=== PATIENT | female | born 1950 | race Caucasian/White ===

== ENCOUNTER 2019-01-04 08:04 | Inpatient (IN) | payer OTHER ==
[~2019-01-04] VITALS: Ht 162.6 cm; Wt 71.4 kg
[2019-01-04 08:05] VITALS: BP 99/40
[2019-01-04 08:45] LABS: ABSOLUTE EOSINOPHILS 0.2 thou/uL (0.0-0.7); ABSOLUTE LYMPHOCYTES 1.6 thou/uL (0.8-5.3); ABSOLUTE MONOCYTES 0.5 thou/uL (0.0-1.2); ABSOLUTE NEUTROPHILS 5.2 thou/uL (1.6-8.1); BASOPHILS 0.4 %; EOSINOPHILS 3.2 %; HEMATOCRIT 35.7 % (37.0-47.0); LYMPHOCYTES 21.1 %; MCH 29.2 pg (26.0-34.0); MCHC 33.5 g/dL (28.0-37.0); MCV 87.1 fL (80.0-100.0); MONOCYTES 6.4 %; MPV 8.3 fl. (7.2-11.1); NUCLEATED RBCS 0 /100WBC; PLATELET COUNT* 249 thou/uL (150-400); POLYS 68.9 %; RDW-CV 14.4 % (10.5-14.5); WBC 7.6 thou/uL (4.0-11.0)
[2019-01-04 08:49] LABS: URINE BILIRUBIN NEGATIVE (Negative); URINE BLOOD TRACE (Negative); URINE CLARITY CLEAR; URINE COLOR YELLOW; URINE GLUCOSE-RANDOM NEGATIVE (Negative); URINE KETONES NEGATIVE (Negative); URINE LEUKOCYTES-REFLEX NEGATIVE (Negative); URINE NITRITE-REFLEX NEGATIVE (Negative); URINE PROTEIN 2+ (Negative); URINE UROBILINOGEN 0.2 E.U./dl (0.2-1.0)
[2019-01-04 08:50] LABS: ANION GAP 9 mmol/L (7-16); BUN 38 mg/dL (7-18); CALCIUM 8.5 mg/dL (8.5-10.1); CHLORIDE 105 mmol/L (98-107); CO2 23 mmol/L (21-32); CREATININE 1.5 mg/dL (0.6-1.3); GLUCOSE 287 mg/dL (70-99); POTASSIUM 4.6 mmol/L (3.5-5.1); SODIUM 137 mmol/L (136-145)
[2019-01-04 08:59] LABS: ALBUMIN 2.7 g/dL (3.4-5.0); ALKALINE PHOSPHATASE 95 U/L (46-116); SGOT 10 U/L (15-37); SGPT 23 U/L (30-65); TOTAL BILIRUBIN 0.2 mg/dL (<0.1-1.0); TOTAL PROTEIN 6.1 g/dL (6.4-8.2); TROPONIN-I LEVEL <0.06 ng/mL (<0.06)
[2019-01-04 09:11] LABS: AMORPHOUS URATES Few /LPF (None Seen); CASTS None Seen /LPF (None Seen); CRYSTALS None Seen /LPF (None Seen); SQUAMOUS 0-3 Few /LPF (0-3); URINE RBC None Seen /HPF (0-2); URINE WBC-REFLEX 0-5 Rare /HPF (0-5)
[2019-01-04] MEDS ORDERED: GLUCOPHAGE1000 MG PO (09:53)
[2019-01-04] MEDS ORDERED: IRON325 M1 PO (09:54)
[2019-01-04] MEDS ORDERED: PLAVIX 75 MG TA75 M1 PO (09:55)
[2019-01-04] MEDS ORDERED: PAXIL40 MG PO (09:55)
[2019-01-04] MEDS ORDERED: IMDUR 60 MG TAB60 M1 PO (09:56)
[2019-01-04] MEDS ORDERED: XARELTO20 MG PO (09:56)
[2019-01-04] MEDS ORDERED: QUINAPRIL 20 MG20 MG PO (09:56)
[2019-01-04] MEDS ORDERED: NITROGLYCERIN0.4 MG SUBLING (09:56)
[2019-01-04] MEDS ORDERED: PROTONIX40 M2 PO (09:57)
[2019-01-04 12:45] VITALS: BP 109/43
--- NOTE | 2019-01-04 14:33 | EKG ---
[place] [address] ELECTROCARDIOGRAM REPORT Name: PRITI CRISOSTOMO Room: [address] ADM IN [facility]#: [id number] Admission: 01/04/19 Attend Phys: Gilberto Burt MD Discharge: Date of : 52 Report #: [id number] THIS REPORT FOR: //name// [facility] ED Test Date: 2019-01-04 Test Time: 08:05:19 Pat Name: PRITI CRISOSTOMO Department: Room: [facility] Gender: F Creative Project Manager: EV : 1950 Requested By: Dea Suero Order Number: [id number] MD: Zurdo Weston Measurements Intervals Davey Rate: 54 P: 52 NJ: 157 QRS: -40 QRSD: 136 T: -31 QT: 480 QTc: 455 Interpretive Statements Sinus bradycardia RBBB and LAFB No previous ECG available for comparison Electronically Signed On 01-04-2019 14:33:31 CDT by Zurdo Weston [email or web address] <ELECTRONICALLY SIGNED> By: Zurdo Weston MD, [facility] 01/04/19 1433 4 4 Zurdo Weston MD, FACC /EPI
[2019-01-04 16:00] VITALS: BP 112/37
--- NOTE | 2019-01-04 18:51 | NUR ---
RECIEVED PT FROM ER AGT 1628, PT IS A BKA R LEG. SHE HAD AN ECHO GRAM WAITING ON RESULTS. BEDREST WITH BEDSIDE COMMODE. PLEASANT ET COMPLIANT THIS SHIFT WITH NURSING CARE. MOSTLY RESTING THIS SHIFT, DID HAVE A MED BM THIS AFTERNOON. SR BBB ON THE CARD MONITOR. BP IS CURRENTLY READING LOW DIASTOLE NUMBERS. PT ATE LUNCH BUT NOT MUCH DINNER. UP WITH ASSIST. HOURLY ROUNDS, ADMISSION ASSESSMENT COMPLETE ET CHARTED.
[2019-01-04 20:00] VITALS: BP 121/60
[2019-01-05] VITALS: BP 141/55
[2019-01-05 03:08] LABS: GLYCOHEMOGLOBIN (HGB A1C) 7.6 % (4.8-5.6)
[2019-01-05 04:00] VITALS: BP 172/53
[2019-01-05 04:36] LABS: ABSOLUTE EOSINOPHILS 0.2 thou/uL (0.0-0.7); ABSOLUTE LYMPHOCYTES 2.5 thou/uL (0.8-5.3); ABSOLUTE MONOCYTES 0.6 thou/uL (0.0-1.2); ABSOLUTE NEUTROPHILS 5.6 thou/uL (1.6-8.1); BASOPHILS 0.3 %; HEMATOCRIT 33.8 % (37.0-47.0); HEMOGLOBIN 11.4 gm/dL (12.0-15.0); LYMPHOCYTES 27.9 %; MCH 29.1 pg (26.0-34.0); MCHC 33.6 g/dL (28.0-37.0); MCV 86.7 fL (80.0-100.0); MONOCYTES 6.8 %; MPV 8.3 fl. (7.2-11.1); NUCLEATED RBCS 0 /100WBC; PLATELET COUNT* 243 thou/uL (150-400); RDW-CV 14.7 % (10.5-14.5); WBC 8.8 thou/uL (4.0-11.0)
[2019-01-05 04:57] LABS: CHOLESTEROL 268 mg/dL (<200); HDL CHOLESTEROL 42 mg/dL (>40); LDL CHOLESTEROL 185 mg/dL (<100); SERUM ASSESSMENT Clear; TC:HDL 6.4 Ratio (Not establshd); TRIGLYCERIDE 207 mg/dL (<150); VLDL 41 mg/dL (<40)
[2019-01-05 05:22] LABS: CALCIUM 8.8 mg/dL (8.5-10.1); CREATININE 1.2 mg/dL (0.6-1.3); POTASSIUM 4.8 mmol/L (3.5-5.1)
--- NOTE | 2019-01-05 05:29 | NUR ---
ASSUMED PATIENT CARE AT 1900. PATIENT ALERT AND ORIENTED TIMES FOUR. HAS BEEN TRANSFERRING SELF TO BSC. NO COMPLAINTS OF PAIN OR DISCOMFORT NOTED. SENIOR PLANNER AND HOURLY ROUNDING COMLETED CHARTED.
[2019-01-05 08:00] VITALS: BP 160/65
[2019-01-05 12:00] VITALS: BP 141/51
--- NOTE | 2019-01-05 13:59 | NUR ---
Pt having testing done in room, will f/u later
--- NOTE | 2019-01-05 14:42 | 2DMMODE ---
[place] [address] 2 D/M-MODE ECHOCARDIOGRAM Name: PRITI CRISOSTOMO Room: [address] IN [facility]#: [id number] Admission: 01/04/19 Attend Phys: Gilberto Burt, Discharge: Date of : 52 Date of Service: 01/05/19 1442 Report #: [id number] THIS REPORT FOR: //name// APPROVED REPORT Study performed: 01/05/2019 09:32:58 EXAM: Comprehensive 2D, Doppler, and color-flow Echocardiogram Patient Location: In-Patient Room #: [facility] Status: routine BSA: 1.76 HR: 71 bpm BP: 160/65 mmHg Rhythm: NSR Other Information Study Quality: Good Indications CVA/TIA Echo Enhancing Agent Indication: Rule out Shunt Agent(s) / Amount(s) Used: Agitated Saline 10 cc 2D Dimensions IVSd: 15.13 (7-11mm) LVOT Diam: 19.71 (18-24mm) LVDd: 46.70 mm PWd: 11.68 (7-11mm) Ascending Ao: 35.36 (22-36mm) LVDs: 29.35 (25-40mm) Aortic Root: 33.13 mm Volumes Left Atrial Volume (Systole) LA ESV Index: 43.50 mL/m2 Aortic Valve AoV Peak Jet.: 1.53 m/s AO Peak Gr.: 9.41 mmHg LVOT Max P.00 mmHg AO Mean Gr.: 5.11 mmHg LVOT Mean P.99 mmHg LVOT Max V: 1.00 m/s AO V2 VTI: 34.18 cm LVOT Mean V: 0.65 m/s GLYNN (VTI): 2.07 cm2 LVOT V1 VTI: 23.24 [place] [address] 2 D/M-MODE ECHOCARDIOGRAM Name: PRITI CRISOSTOMO Room: [address] IN [facility].#: [id number] Admission: 01/04/19 Attend Phys: Gilberto Burt, Discharge: Date of : 52 Date of Service: 01/05/19 1442 Report #: [id number] Mitral Valve E/A Ratio: 1.07 MV Decel. Time: 205.12 ms MV E Max Jet.: 0.90 m/s MV PHT: 59.49 ms MVA (PHT): 3.70 cm2 TDI E/Lateral E': 9.00 E/Medial E': 15.00 Medial E' Jet.: 0.06 m/s Lateral E' Jet.: 0.10 m/s Pulmonary Valve PV Peak Jet.: 1.01 m/s PV Peak Gr.: 4.04 mmHg Left Ventricle The left ventricle is normal size. There is normal LV segmental wall motion. Mild concentric left ventricular hypertrophy. Left ventricular systolic function is normal. LVEF is 65-70%. Transmitral Doppler flow pattern suggests impaired LV relaxation. Right Ventricle The right ventricle is normal size. The right ventricular systolic function is normal. Atria Left atrium is mildly dilated. Interatrial septum is intact without evidence of ASD or PFO. The right atrium size is normal. Aortic Valve The Aortic valve is sclerotic. No aortic regurgitation is present. Mild aortic stenosis. Mitral Valve The mitral valve is normal in structure. Trace mitral regurgitation. No evidence of mitral valve stenosis. Tricuspid Valve The tricuspid valve is normal in structure. There is no tricuspid valve regurgitation noted. Pulmonic Valve The pulmonary valve is normal in structure. There is no pulmonic valvular regurgitation[place] [address] 2 D/M-MODE ECHOCARDIOGRAM Name: PRITI CRISOSTOMO Room: [address]#: [id number] Admission: 01/04/19 Attend Phys: Gilberto Burt, Discharge: Date of : 52 Date of Service: 01/05/19 1442 Report #: [id number] The aortic root is normal in size. IVC is normal in size and collapses >50% with inspiration. Pericardium There is no pericardial effusion. <Conclusion> The left ventricle is normal size. Mild concentric left ventricular hypertrophy. Left ventricular systolic function is normal. LVEF is 65-70%. Transmitral Doppler flow pattern suggests impaired LV relaxation. Interatrial septum is intact without evidence of ASD or PFO. Left atrium is mildly dilated. The Aortic valve is sclerotic. Mild aortic stenosis. Trace mitral regurgitation. IVC is normal in size and collapses >50% with inspiration. <ELECTRONICALLY SIGNED> By: Mervin Mary MD, FACC 01/05/19 1442 144 144 Merivn Mary MD, FACC /INF
--- NOTE | 2019-01-05 15:35 | NUR ---
ASSUMED PT CARE AT 0800, AOX4, UP SBA, O2 SAT 90'S RA. TRACING SR, BBB ON TELE. PT DENIES PAIN. PT HAD EEG, FOR MRA/MRI. PT HAS VASCULAR CONSULT. PT FOR ACCU CHECK, PT IV ACCESS INTACT, FLUID RUNNING, PT LAST BM TODAY. VSS, AM ASSESSMENT CHARTED, MEDS GIVEN PER MAR. WILL CONTINUE TO MONITOR.
[2019-01-05 16:00] VITALS: BP 121/53
[2019-01-05 20:00] VITALS: BP 90/63
[2019-01-06] VITALS: BP 165/60
[2019-01-06 04:00] VITALS: BP 148/69
--- NOTE | 2019-01-06 05:53 | NUR ---
ASSUMED PATIENT CARE AT 1900. PATIENT ALERT AND ORIENTED TIMES FOUR. NO COMPLAINTS OF PAIN OR DISCOMFORT NOTED. STATES THAT SHE FEELS MUCH BETTER BUT, LETHARGIC. HOPING TO BE ABLE TO GO HOME TODAY. PAEDODONTIST AND HOURLY ROUNDING COMPLETED CHARTED
[2019-01-06 07:30] VITALS: BP 150/56
[2019-01-06 09:36] LABS: ABSOLUTE EOSINOPHILS 0.2 thou/uL (0.0-0.7); ABSOLUTE LYMPHOCYTES 1.6 thou/uL (0.8-5.3); ABSOLUTE MONOCYTES 0.6 thou/uL (0.0-1.2); ABSOLUTE NEUTROPHILS 3.6 thou/uL (1.6-8.1); BASOPHILS 0.6 %; HEMATOCRIT 33.8 % (37.0-47.0); HEMOGLOBIN 11.4 gm/dL (12.0-15.0); LYMPHOCYTES 26.9 %; MCHC 33.9 g/dL (28.0-37.0); MCV 85.8 fL (80.0-100.0); MONOCYTES 9.4 %; MPV 8.1 fl. (7.2-11.1); NUCLEATED RBCS 0 /100WBC; PLATELET COUNT* 243 thou/uL (150-400); POLYS 59.1 %; RBC 3.94 mil/uL (4.20-5.00); RDW-CV 14.4 % (10.5-14.5); WBC 6.1 thou/uL (4.0-11.0)
[2019-01-06 10:02] LABS: ALBUMIN 2.6 g/dL (3.4-5.0); CALCIUM 8.5 mg/dL (8.5-10.1); CREATININE 1.1 mg/dL (0.6-1.3); POTASSIUM 3.9 mmol/L (3.5-5.1); TOTAL BILIRUBIN 0.5 mg/dL (<0.1-1.0); TOTAL PROTEIN 5.9 g/dL (6.4-8.2)
[2019-01-06 12:00] VITALS: BP 172/68
--- NOTE | 2019-01-06 13:19 | NUR ---
PT. IS NOT USING HER PROTHESIS SINCE SHE SAYS IT DOESN'T FIT AND HAS BEEN HAVING DIFFICULTY GETTING TO HANGAR. SHE DOESN'T LIKE USING A WALKER AND HOPPING BECAUSE SHE HAS FELL BEFORE. PT. BORROWS HER SPOUSE'S W/C AROUND THE HOUSE BUT THEY ARE UNABLE TO GET THE W/C IN HER CAR. PT. APPEARS SHE MAY BENEFIT FROM A ULTRA LIGHTWEIGHT W/C THAT THE WHEELS POP OFF AND THE SEAT FOLDS FOR COMMUNITY MOBILITY.
--- NOTE | 2019-01-06 15:04 | NUR ---
Pt is A&O. Resides at home with her , dtr and gdtr. Independent with driving, dtr completes cooking and cleaning. Independent with ADLs. Pt uses a wc for mobility, able to complete her own transfers and propel. Pt is a right AKA and states that she has a prothesis, but states that it needs to be adjusted. No hx of HH or SNF. Pt wants HH, CM to arrange. Following.
[2019-01-06 16:00] VITALS: BP 137/52
--- NOTE | 2019-01-06 17:25 | NUR ---
ASSUMED PT CARE AT 0730, AOX4, UP SBA TO COMMODE. O2 SAT 90'S RA. TRACING SR ON TELE. PT DENIES PAIN. PT HAD CTA CHEST. PT FOR ACCU CHECK, IV ACCESS INTACT FLUIDS. LAST BM 12/06/18. VSS, AM ASSESSMENT CHARTED, MED GIVEN PER MAR, CALL LIGHT WITHIN REACH, WILL CONITINUE TO MONITOR.
[2019-01-06 20:48] VITALS: BP 208/84
[2019-01-07] VITALS (7 sets, daily range): BP systolic 148–179; BP diastolic 47–80
--- NOTE | 2019-01-07 06:57 | NUR ---
PT IS ABLE TO COMMUNICATE HER NEEDS TO STAFF EFFECTIVELY. SHE HAS DENIED THE NEED FOR PAIN MEDICATION UP TO THIS TIME. SHE HAS BEEN NPO SINCE MIDNIGHT FOR A DOBUTAMINE STRESS ECHO LATER TODAY. POSSIBLE DISCHARGE LATER TODAY PENDING CARDIOLOGY APPROVIAL.
--- NOTE | 2019-01-07 09:24 | NUR ---
Pt discharging to home today, faxed HH referral to [facility] per Pt's request.
--- NOTE | 2019-01-07 10:08 | NUR ---
assumed pt care report received from nurse pt is aox4, sr bbb on campus monitor. on ra. ns infusing at 50 cc per hour. accucheck ac/hs. mornign med given. pending stress echo test. pt is awaiting in room. pt uses the bedside commode independently. no complaint. will continue to monitor
[2019-01-07] MEDS ORDERED: LIPITOR40 MG PO (14:05)
--- NOTE | 2019-01-07 16:45 | CON ---
[address] [address] CONSULTATION Name: PRITI CRISOSTOMO Room: [address] IN [facility].#: [id number] Admission: 01/04/19 Attend Phys: Gilberto Burt MD Discharge: Date of : 52 Report #: [id number] THIS REPORT FOR: //name// CC: Gilberto Amaro DATE OF SERVICE: 01/06/2019 CARDIOLOGY CONSULTATION HISTORY OF PRESENT ILLNESS: The patient is a 68-year-old white female, who I was asked to see in the hospital today to assess her cardiac risk for surgery. The patient has an extensive and complicated past medical history. Unfortunately, most of her care has been at [facility]. She has a long history of diabetes, hypertension, and hyperlipidemia. She also smokes a pack of cigarettes a day. She has a history of PAD and has had stents placed in both legs. She was not a candidate for surgery. She eventually required right above the knee amputation about a year ago at [facility]. She does have prosthesis. She is not very active at this time. She also apparently had a previous left carotid stent. She has no history of coronary artery disease. Stated she had a previous pharmacologic nuclear stress test that was unremarkable. She has never had a heart catheterization. She presented to [facility]. She apparently had a syncopal spell at home. She complained of feeling weak on arrival. She denied any recent chest pain, shortness of breath, palpitations. She was found to have evidence of carotid stenosis. She may require carotid endarterectomy. Preop cardiology evaluation was requested. PAST MEDICAL HISTORY: Otherwise significant for hysterectomy and cholecystectomy. MEDICATIONS: On admission includes metformin, Paxil, Plavix, Imdur, Xarelto, quinapril, Protonix. ALLERGIES: She has no known drug allergies. FAMILY HISTORY: Positive for heart disease. SOCIAL HISTORY: She is . She and her live here in [place]. She smokes a pack of cigarettes a day. Denies alcohol abuse. REVIEW OF SYSTEMS: There has been no previous history of stroke. No history of asthma, liver disease, kidney disease, cancer, psychiatric illness, chronic skin condition. PHYSICAL EXAMINATION: [place] [address] CONSULTATION Name: PRITI CRISOSTOMO Room: [address]#: [id number] Admission: 01/04/19 Attend Phys: Gilberto Burt MD Discharge: Date of : 52 Report #: [id number] GENERAL: Revealed an elderly female lying in bed. She appeared in no acute distress. VITAL SIGNS: Blood pressure 150/60, pulse 70. She is afebrile. HEENT: She was anicteric. Conjunctivae are pink. Mucous membranes are moist. NECK: Veins are nondistended. Bilateral carotid bruits were heard. CHEST: Clear to auscultation. CARDIOVASCULAR: Regular rate and rhythm, no murmur. ABDOMEN: Soft. EXTREMITIES: Left lower extremity had no edema. Dorsalis pedis pulse cannot be palpated. SKIN: Cool and dry. NEUROLOGIC: Nonfocal. LABORATORY DATA: Her ECG on admission showed a sinus bradycardia, left anterior fascicular block and a right bundle branch block. Workup since her hospitalization included an echocardiogram done yesterday that showed left ventricular hypertrophy, ejection fraction 65%. No evidence of PFO by bubble study, left atrial enlargement, aortic sclerosis. There appeared to be mild stenosis of the aortic valve with a peak gradient across the valve of 10 mmHg. Workup since her admission, she had a portable chest x-ray that showed normal heart size, tortuous aorta, otherwise clear lung ramirez. CT scan of the head after admission without contrast showed no acute abnormality. Carotid Doppler study performed of the right carotid showed a plaque, severe stenosis. The left carotid showed a moderate stenosis as well. CT scan of the chest with contrast showed tortuous aorta and atherosclerotic coronary arteries. Her lab work, sodium 140, BUN 19, creatinine 1.1. Liver function studies were normal. Cholesterol was 268, triglyceride 207, HDL 42, LDL 185, hemoglobin A1c 7.6. White blood cell count 6.1, hematocrit 33.8. IMPRESSION AND RECOMMENDATIONS: 1. Coronary artery disease. Asymptomatic although the patient is not very active at this time. Recommend dobutamine stress echo to assess for ischemia. 2. Carotid stenosis. The patient is scheduled for carotid endarterectomy. I would hold off surgery until after stress test. 3. Diabetes. 4. Hypertension. The patient has been on an ANKITA inhibitor. 5. Uses Xarelto. The patient has never been here to [facility]. This was suggestive the patient has had atrial fibrillation in the past. 6. Hyperlipidemia. I would recommend a statin drug. 7. Tobacco abuse. 8. Episode of confusion. 9. Peripheral arterial disease with previous stenting and amputation. <ELECTRONICALLY SIGNED> By: Zurdo Weston MD, FACC 01/07/19 1645 1355 [id number] Weston MD, FACC /nt
--- NOTE | 2019-01-07 16:52 | NUR ---
PT WENT FOR STRESS TEST AT 1500, RETURNED THIS AFTERNOON AT 1615. OK FROM SENIOR COMPLIANCE ANALYST FOR PT TO DC. DISCHARGE INSTRUCTION GIVEN TO PT. IV FROM R FOREARM REMOVED PRESSURE APPLIED AND DRESSED WITH COTTON BALL AND TAPE. HEART MONITOR REMOVED. PT REFUSED TO EAT DINER AND ALREADY CALLED FOR HER RIDE. AWAITING FOR RIDE. STEFAN HAS BEEN GIVEN
--- NOTE | 2019-01-07 18:46 | CON ---
[address] [address] CONSULTATION Name: PRITI CRISOSTOMO Room: [address] IN .R.#: [id number] Admission: 01/04/19 Attend Phys: Gilberto Burt MD Discharge: 01/07/19 Date of : 52 Report #: [id number] THIS REPORT FOR: //name// CC: Gilberto Amaro DATE OF SERVICE: 01/06/2019 REASON FOR CONSULTATION: Questionable hilar mass. SUBJECTIVE: This is a 68-year-old female who has been a heavy smoker for the last 50 years, has been admitted because of episodes of syncope. She thinks she passed out. There is no seizure-like activity. No lightheadedness. At the time of evaluation, no facial droop or slurred speech. The patient underwent a neurological workup including MRI of the brain, which showed multifocal [id number] atherosclerotic narrowing of the cavernous segments of the internal carotid artery. There were no acute noncontrast brain abnormalities. No acute infarct. CTA of the neck showed a questionable left hilar mass or lymphadenopathy. 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 The patient reported that she had her colonoscopy less than 5 years and had the last mammogram 2 years ago. She is still an active smoker. REVIEW OF SYSTEMS: All systems were reviewed. It was negative except the above. PAST MEDICAL HISTORY: Diabetes mellitus, coronary artery disease, hypertension, and peripheral vascular disease. PAST SURGICAL HISTORY: Bilateral lower extremity stents, left carotid endarterectomy, and right AKA. SOCIAL HISTORY: Active smoker 1 pack per day for the last 50 years. No alcohol or drug abuse. FAMILY HISTORY: Noncontributory. MEDICATIONS: Per admission list. ALLERGIES: No known allergies. PHYSICAL EXAMINATION: VITAL SIGNS: Today, temperature 36.1, pulse 82, respirations 19, blood pressure is 137/52, and SpO2 was 93% on room air. GENERAL: The patient was sitting in chair, [place] [address] CONSULTATION Name: PRITI CRISOSTOMO Room: [address]#: [id number] Admission: 01/04/19 Attend Phys: Gilberto Burt MD Discharge: 01/07/19 Date of : 52 Report #: [id number] LUNGS: Decreased breathing sounds bilaterally. HEART: Regular rate and rhythm. S1, S2 within normal limits. ABDOMEN: Soft, nontender, and nondistended. Bowel sounds positive. LABORATORY DATA: WBC 6.1 and hemoglobin 11.4. Creatinine is 1.1, total bilirubin 0.5, AST is 15, and ALT 21. IMAGING: CT scan of the chest showed no evidence of hilar, mediastinal mass, or lymphadenopathy. ASSESSMENT AND PLAN: This is a 68-year-old female who was evaluated because of questionable hilar mass after obtaining CT scan of the chest with contrast. No suspicious area has been identified; however, today, I discussed with the patient smoking cessation. I encouraged the patient to obtain a mammogram after discharge and keep up to date with her colonoscopy for screening. <ELECTRONICALLY SIGNED> By: Kaitlynn Wallis MD 01/07/19 1846 1703 [id number] Wallis MD /nt
--- NOTE | 2019-01-08 09:32 | EEG ---
[address] [address] EEG STUDY REPORT Name: SANDRO CRISOSTOMOShae Williamson Room: [address]#: [id number] Admission: 01/04/19 Attend Phys: Gilberto Burt MD Discharge: 01/07/19 Date of : 52 Report #: [id number] THIS REPORT FOR: //name// CC: Gilberto Davis [place] DATE OF SERVICE: 01/05/2019 This patient is being evaluated for altered mental status. EEG was done by placing the electrode by standard 10-20 system of electrode placement. Both referential and sequential montages were used for recording. The patient's background activity is about 8 Hz and 30 microvolt. It was a symmetrical activity. Photic stimulation was unremarkable. The patient became drowsy and that is associated with bilateral slowing and vertex sharp waves. Throughout the record, no active epileptiform activity was noticed. IMPRESSION: This patient's EEG is intermixed with theta range slowing on both sides. That is a nonspecific abnormality, which can occur with dementia, effect of psychotropic medication, encephalopathy, etc. Clinical correlation is recommended. <ELECTRONICALLY SIGNED> By: Braeden Garcia MD 01/08/19 0932 1627 [id number] pablo Garcia MD /nt
--- NOTE | 2019-01-08 09:32 | CON ---
[address] [address] CONSULTATION Name: PRITI CRISOSTOMO Room: [address] IN M.R.#: [id number] Admission: 01/04/19 Attend Phys: Gilberto Burt MD Discharge: 01/07/19 Date of : 52 Report #: [id number] THIS REPORT FOR: //name// CC: Gilberto Davis [place] DATE OF SERVICE: 01/05/2019 HISTORY OF PRESENT ILLNESS: This is a 68-year-old female patient who was seen by me for an episode of syncope. This patient is an extremely poor historian. She does not know what happened. She thinks she passed out. She does not think there was any tonic-clonic activity associated with that. She did not have any well-defined postictal period. She had some slurring of the speech as per records, and there was some question of facial droop. There was also some question of hypotension the way I understand from the records. Her blood pressure went as low as 87/31. REVIEW OF SYSTEMS: Indicate that this patient indicates that she had some trouble with her neck. She never received any radiation. She had some surgery. Subsequently, she had endarterectomy. She continues to smoke. There was some question of altered mental status. She is on medications for depression. From the record, it also indicate that she also is on Xarelto. She does not tell me why she is on that. She had above-knee amputation on the right side. She said she had stents in the past. She said she has a vascular disease in the lower extremities and that was the reason for the amputation. She does not complain of any new eye, ENT, cardiac, respiratory, GI, , musculoskeletal, constitutional, dermatological, hematological, psychiatric, throat, allergic symptoms associated with present symptomatology. She does have problem with multiple other things including the respiratory problems in the past. PAST SURGICAL HISTORY: Positive for endarterectomy. She does not know what symptoms she had or whether it was asymptomatic. PAST MEDICAL HISTORY: Positive for question of TIA. She does not elaborate any further. SOCIAL HISTORY: Positive for stroke. FAMILY HISTORY: Unremarkable. PHYSICAL EXAMINATION: Indicates that she is alert, responsive. Her speech looks intact. She has some diminished memory and fund of knowledge, but I suspect that is her baseline. Cranial nerve examination 2-12 looks unremarkable. She does have an amputation of the right leg. She said she still has sensation there. Reflexes are diminished. No cerebellar sign. I could not look at the fundus. There is no meningeal sign. Cardiac [place] [address] CONSULTATION Name: LOY CRISOSTOMOVÍCTOR Williamson Room: [address] IN ..#: [id number] Admission: 01/04/19 Attend Phys: Gilberto Burt MD Discharge: 01/07/19 Date of : 52 Report #: [id number] examinations appear unremarkable. She does have rhonchi on both sides. Blood pressure now is 121/53, respirations are 20, pulse is 81, and temperature is 98.5. LABORATORY DATA: Indicates a normal white count. Chemistry indicates a GFR of 45. She did have a CT and a carotid Doppler, and she is being followed by vascular. IMPRESSION AND PLAN: Symptoms suggestive of an ischemic event. We will see what the MRI shows and she needs to stop smoking. She is already on antithrombotic therapy and we need to decide what to do about the carotids and we will look at her MRI and decide further. Thank you very much for this referral. <ELECTRONICALLY SIGNED> By: Braeden Garcia MD 01/08/19 0932 1729 [id number] Garcia MD /nt
--- NOTE | 2019-01-08 12:56 | EXE ---
[place] [address] STRESS ECHOCARDIOGRAM Name: PRITI CRISOSTOMO Room: [address]#: [id number] Admission: 01/04/19 Attend Phys: Gilberto Burt, Discharge: 01/07/19 Date of : 52 Date of Service: 01/07/19 1647 Report #: [id number] THIS REPORT FOR: //name// APPROVED REPORT Study performed: 01/07/2019 15:22:04 Exam: Dobutamine Stress Echo Indication: Syncope, HYPOTENSION Patient Location: In-Patient Stress Nurse: Yolis Conrad RN Room #: [facility] Supervising Physician: Mervin Mary MD Status: routine Ht: 5 ft 4 in HR: 78 bpm BP: 152/62 mmHg Rhythm: NSR Medical History Medical History: Carotid artery disease, Hypotension, syncope, possible TIA, CAD Medications: Lisinopril, Hydralazine, Plavix, Lipitor, Xarelto Allergies: No known drug allergies Cardiac Risk Factors: Hyperlipidemia, HTN, DM, Tobacco History (Current/Recent) Procedure The patient underwent a Pharmacological Stress Test using Dobutamine. Blood pressure, heart rate, and EKG were monitored. An Echocardiogram was performed by land survey technician in four stages in quad fashion. At peak stress, four selected images were obtained and placed side by side with resting images for comparison. Stress Test Details Stress Test: Pharmacological Stress Test using Dobutamine. HR Resting HR: 78 bpm Max Heart Rate (APMHR): 153 bpm Max HR Achieved: 132 bpm Target HR (85% APMHR): 130 bpm % of APMHR: 86 Recovery HR: 93 bpm HR response to stress: [place] [address] STRESS ECHOCARDIOGRAM Name: PRITI CRISOSTOMO Room: [address]#: [id number] Admission: 01/04/19 Attend Phys: Gilberto Burt, Discharge: 01/07/19 Date of : 52 Date of Service: 01/07/19 1647 Report #: [id number] Resting BP: 152/62 mmHg Max BP: 232/64 mmHg Recovery BP: 164/69 mmHg ECG Resting ECG: Sinus Rhythm, RBBB Stress ECG: Sinus Tachycardia, RBBB ST Change: None Arrhythmia: None Recovery ECG: Sinus Rhythm, RBBB Recovery ST Change: None Recovery Arrhythmia: None Clinical Reason for Termination: Completed protocol The patient tolerated dobutamine infusion without significant cardiac symptoms. Stress ECG Conclusion The baseline 12-lead EKG show sinus rhythm with right bundle-branch block. There were no significant ST segment abnormalities. EKGs during and post dobutamine infusion show sinus rhythm and sinus tachycardia with no significant ST segment changes when compared to baseline. There were rare unifocal premature ventricular contractions noted. Pre-Stress Echo The resting Echocardiogram showed normal left ventricular contractility with an estimated Ejection Fraction of about 55-60%. Normal wall motion in all segments on baseline images. Post-Stress Echo The stress Echocardiogram showed normal left ventricular contractility with an estimated Ejection Fraction of about 65-70%. Normal augmentation of wall motion in all segments on post stress images. Conclusion Clinical Response: Non-ischemic Stress ECG Response: Non-ischemic Stress Echo Images: [place] [address] STRESS ECHOCARDIOGRAM Name: PRITI CRISOSTOMO Room: [address]#: [id number] Admission: 01/04/19 Attend Phys: Gilberto Burt, Discharge: 01/07/19 Date of : 52 Date of Service: 01/07/191646 Report #: [id number] Other Information Study Quality: Good <ELECTRONICALLY SIGNED> By: Mervin Mary MD, FACC 01/07/191646 46 46 Mervin Mary MD, FACC /INF
== END 2019-01-07 17:23 | disposition home health service (06) | DRG 67 ==
LOC: M.ERS 08:04 → M.2W 11:09 → M.TBA-ER 11:09 → M.2W 12:57
PROVIDERS: Personal Emergency Response Attendant; ADMIT Internal Medicine
DX: I65.21 Occlusion and stenosis of right carotid artery (principal); N17.0 Acute kidney failure with tubular necrosis; E44.0 Moderate protein-calorie malnutrition; I95.9 Hypotension, unspecified; I10 Essential (primary) hypertension; I73.9 Peripheral vascular disease, unspecified; I25.10 Atherosclerotic heart disease of native coronary artery without angina pectoris; E78.5 Hyperlipidemia, unspecified; F17.210 Nicotine dependence, cigarettes, uncomplicated; Z89.611 Acquired absence of right leg above knee; I25.2 Old myocardial infarction; Z95.5 Presence of coronary angioplasty implant and graft; Z90.710 Acquired absence of both cervix and uterus; Z82.49 Family history of ischemic heart disease and other diseases of the circulatory system; Z68.27 Body mass index [BMI] 27.0-27.9, adult; Z23 Encounter for immunization

== ENCOUNTER 2019-02-25 06:59 | Inpatient (IN) | payer OTHER ==
[~2019-02-25] VITALS: Ht 165.1 cm; Wt 73.0 kg
[2019-02-25] VITALS (11 sets, daily range): BP systolic 123–172; BP diastolic 52–75
[~2019-02-25 06:59] MED LIST: GLUCOPHAGE1000 MG PO; IMDUR 60 MG TAB60 M1 PO; IRON325 M1 PO; LIPITOR40 MG PO; NITROGLYCERIN0.4 MG SUBLING; PAXIL40 MG PO; PLAVIX 75 MG TA75 M1 PO; PROTONIX40 M2 PO; QUINAPRIL 20 MG20 MG PO; XARELTO20 MG PO
[2019-02-25 10:49] LABS: ABSOLUTE BASOPHILS 0.1 thou/uL (0.0-0.2); ABSOLUTE EOSINOPHILS 0.3 thou/uL (0.0-0.7); ABSOLUTE LYMPHOCYTES 1.9 thou/uL (0.8-5.3); ABSOLUTE MONOCYTES 0.5 thou/uL (0.0-1.2); ABSOLUTE NEUTROPHILS 5.7 thou/uL (1.6-8.1); BASOPHILS 0.8 %; EOSINOPHILS 3.5 %; HEMATOCRIT 35.8 % (37.0-47.0); HEMOGLOBIN 12.1 gm/dL (12.0-15.0); MCH 29.1 pg (26.0-34.0); MCHC 33.8 g/dL (28.0-37.0); MONOCYTES 5.9 %; NUCLEATED RBCS 0 /100WBC; PLATELET COUNT* 259 thou/uL (150-400); POLYS 67.8 %; RBC 4.16 mil/uL (4.20-5.00); RDW-CV 14.8 % (10.5-14.5); WBC 8.4 thou/uL (4.0-11.0)
[2019-02-25 10:56] LABS: CALCIUM 9.3 mg/dL (8.5-10.1); CREATININE 1.1 mg/dL (0.6-1.3); POTASSIUM 4.9 mmol/L (3.5-5.1)
[2019-02-25 11:01] LABS: ALBUMIN 3.2 g/dL (3.4-5.0); TOTAL BILIRUBIN 0.4 mg/dL (<0.1-1.0); TOTAL PROTEIN 6.8 g/dL (6.4-8.2)
[2019-02-26] VITALS (24 sets, daily range): BP systolic 94–187; BP diastolic 45–77
[2019-02-26 04:01] LABS: HEMATOCRIT 30.9 % (37.0-47.0); HEMOGLOBIN 10.5 gm/dL (12.0-15.0); MCH 29.1 pg (26.0-34.0); MCHC 33.9 g/dL (28.0-37.0); MPV 8.5 fl. (7.2-11.1); RBC 3.6 mil/uL (4.20-5.00); RDW-CV 14.8 % (10.5-14.5); WBC 9.5 thou/uL (4.0-11.0)
[2019-02-26 04:15] LABS: POTASSIUM 4.7 mmol/L (3.5-5.1)
[2019-02-26] MEDS ORDERED: ASA81BEC PO (07:52)
[2019-02-26 15:37] LABS: HEMATOCRIT 28.4 % (37.0-47.0); HEMOGLOBIN 9.7 gm/dL (12.0-15.0); MCH 29.6 pg (26.0-34.0); MCHC 34.3 g/dL (28.0-37.0); MCV 86.2 fL (80.0-100.0); MPV 8.2 fl. (7.2-11.1); RBC 3.29 mil/uL (4.20-5.00); RDW-CV 14.9 % (10.5-14.5); WBC 9.7 thou/uL (4.0-11.0)
[2019-02-27] VITALS (67 sets, daily range): BP systolic 91–157; BP diastolic 35–93
[2019-02-27 08:18] LABS: CALCIUM 8.8 mg/dL (8.5-10.1); CREATININE 1.2 mg/dL (0.6-1.3); MAGNESIUM 1.5 mg/dL (1.8-2.4)
--- NOTE | 2019-02-27 11:29 | EKG ---
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1950 Requested By: Rossi López Order Number: [id number] Reading MD: Yariel Cook Measurements Intervals [place] Rate: 151 P: AR: QRS: -66 QRSD: 126 T: -13 QT: 307 QTc: 487 Interpretive Statements atrial fibrillation with a rapid response Ventricular premature complex RBBB and LAFB Compared to ECG 01/04/2019 08:05:19 Ventricular premature complex(es) now present Sinus bradycardia no longer present Electronically Signed On 02-27-2019 11:29:24 REGISTERED NURSE RENAL by Yariel Cook [email or web address] <ELECTRONICALLY SIGNED> By: Yariel Cook MD, [facility] 02/27/19 1129 0716 0716 Yariel Cook MD, [facility] /EPI
--- NOTE | 2019-02-27 14:06 | OP ---
[facility] [address] [place] [address] OPERATIVE REPORT Name: KRANTHIPRITI L Room: [address] IN .R.#: [id number] Admission: 02/25/19 Attend Phys: John Long Discharge: Date of : 52 Report #: [id number] THIS REPORT FOR: //name// CC: Ryan Campuzano DATE OF SERVICE: 02/25/2019 PREOPERATIVE DIAGNOSIS: Severe right internal carotid artery stenosis. POSTOPERATIVE DIAGNOSIS: Severe right internal carotid artery stenosis. PROCEDURE: 1. Right carotid endarterectomy with patch angioplasty. 2. Intraoperative ultrasound with interpretation. FINDINGS ON ULTRASOUND: 1. Normal waveform velocity identified within the common internal carotid artery. 2. No flaps or defects identified in helm-scale imaging. 3. Patent flow identified in the external carotid artery on color flow imaging. SURGEON: Alan Ma MD CLEAN UP HELPER BANQUET: Ganga Santacruz DO, resident. COMPLICATIONS: None. ESTIMATED BLOOD LOSS: 100 mL. SPECIMEN: Includes plaque. ANESTHESIA: General. INDICATIONS FOR PROCEDURE: The patient is a very pleasant 68-year-old white female who has previously undergone a left carotid endarterectomy many years ago. She has severe stenosis of her right internal carotid artery. For this reason, I am recommending carotid endarterectomy. Informed consent was obtained with risks including but not limited to bleeding, infection, need for further surgery, pain, , heart attack, stroke, cranial nerve injury. The patient understood these risks and was agreeable to proceed. DESCRIPTION OF PROCEDURE: The patient was taken to the OR and placed in supine position. Right neck and chest were prepped and draped in usual sterile fashion. Timeout was performed. We [place] [address] OPERATIVE REPORT Name: PRITI CRISOSTOMO Room: [address] IN [facility]#: [id number] Admission: 02/25/19 Attend Phys: John Long Discharge: Date of : 52 Report #: [id number] patient's right neck. Sharp and blunt dissection was carried down to the sternocleidomastoid. We followed the anterior border of the muscle down to the jugular vein. I divided the facial vein between ties and clips. We entered the carotid sheath. We controlled the common carotid artery as well as the branches of the internal and external carotid artery. I created a longitudinal arteriotomy on the common carotid artery leading into the internal carotid artery. I placed a 12 shunt without difficulty. I performed endarterectomy in standard fashion using a [place] elevator and a pair of pickups. I performed eversion endarterectomy of the external carotid artery. I got a nice feathered edge leading into the internal carotid artery. I used a bovine pericardial patch and a running 6-0 Prolene suture to close the arteriotomy. At completion of the repair, there was adequate hemostasis and excellent blood flow into the internal and external carotid artery. I performed intraoperative ultrasound with interpretation. We corrected the heparin with protamine, controlled bleeding as needed with electrocautery, ties, clips and Carlos, closed the wound in multiple layers using 2-0 Vicryl, 3-0 Vicryl and Monocryl for the skin. Incision was dressed with Dermabond. The patient was taken alert and awake to recovery room in good condition, neurologically intact without evidence of TIA or stroke. <ELECTRONICALLY SIGNED> By: Garrick Lloyd DO 02/27/19 1406 1246 1302Rtrung Ma MD /nt
[2019-02-28] VITALS (12 sets, daily range): BP systolic 123–167; BP diastolic 40–58
[2019-02-28 05:33] LABS: HEMATOCRIT 27.2 % (37.0-47.0); HEMOGLOBIN 9.1 gm/dL (12.0-15.0); MCH 29.2 pg (26.0-34.0); MCHC 33.5 g/dL (28.0-37.0); MCV 87.3 fL (80.0-100.0); MPV 8.5 fl. (7.2-11.1); RBC 3.12 mil/uL (4.20-5.00); RDW-CV 14.6 % (10.5-14.5); WBC 10.9 thou/uL (4.0-11.0)
[2019-02-28 05:42] LABS: CALCIUM 7.8 mg/dL (8.5-10.1); CREATININE 1.3 mg/dL (0.6-1.3); POTASSIUM 4.9 mmol/L (3.5-5.1)
--- NOTE | 2019-02-28 11:59 | CON ---
[address] [address] CONSULTATION Name: PRITI CRISOSTOMO Room: [address]#: [id number] Admission: 02/25/19 Attend Phys: John Long Discharge: 02/28/19 Date of : 52 Report #: [id number] THIS REPORT FOR: //name// CC: Ryan Campuzano DATE OF SERVICE: 02/27/2019 CARDIOLOGY CONSULTATION The patient in ICU 1. HISTORY OF PRESENT ILLNESS: The patient is a pleasant 68-year-old female who is now 2 days status post right carotid endarterectomy. She had a prior TIA with significant right carotid stenosis. The patient developed a significant right neck hematoma post-procedurally. There was associated hypotension. Of late, she has developed atrial fibrillation with rapid response, which has been marginally responsive to administered beta blockade. Prior therapy had included metformin, Plavix, isosorbide mononitrate, Xarelto, iron, nitroglycerin, quinapril, pantoprazole and atorvastatin. The patient gives no history at present as she is quite groggy after the aforementioned events. PAST MEDICAL HISTORY: Remarkable for diabetes, peripheral vascular disease, recent right carotid endarterectomy and remote coronary artery disease, status post myocardial infarction and stenting. She also has a right AKA amputation. PHYSICAL EXAMINATION: GENERAL: Demonstrates not acutely distressed elderly female who is sleepy and not particularly responsive to my verbal questioning. VITAL SIGNS: Blood pressure is 110/70, pulse rate is 128 and irregularly irregular, respirations are 18 per minute and unlabored. CHEST: Clear. CARDIAC: Reveals a rapid irregularly irregular rhythm. ABDOMEN: Soft. EXTREMITIES: Reveal a right AKA amputation. LABORATORY DATA: From 02/26/2019 revealed hemoglobin of 9.7 down from 12.1 on 02/25/2019. White blood cell count 9700 with 235,000 platelets. Chemistries on 02/27/2019, sodium 137, potassium 4.0, BUN 23, creatinine 1.2, glucose 144. Hemoglobin A1c 7.6. Troponin I is less [place] 0[place]06[place] [address] CONSULTATION Name: PRITI CRISOSTOMO Room: [address]#: [id number] Admission: 02/25/19 Attend Phys: John Long Discharge: 02/28/19 Date of : 52 Report #: [id number] IMPRESSION: 1. Atrial fibrillation with a rapid response. 2. Status post recent right carotid endarterectomy. 3. Right neck hematoma post-procedurally. 4. Coronary artery disease, status post remote myocardial infarction and stenting. 5. Status post remote above-knee amputation. 6. Diabetes. 7. Hyperlipidemia. RECOMMENDATIONS: 1. IV Cardizem for rate control on modest bolus infusion given her low normal systemic pressure. 2. Hold beta blockade at present. 3. Continued attention to right neck hematoma. We will follow with you. Thank you for allowing us to see the patient in cardiovascular assessment. Critical care time is 35 minutes from 0940 to 1015 on 02/27/2019. <ELECTRONICALLY SIGNED> By: Yariel Cook MD, FACC 02/28/19 1159 1015 1048Joarabella Cook MD, FACC /nt
--- NOTE | 2019-03-01 11:29 | EKG ---
[place] [address] ELECTROCARDIOGRAM REPORT Name: PRITI CRISOSTOMO Room: [address] DIS IN M.R.#: [id number] Admission: 02/25/19 Attend Phys: John Long Discharge: 02/28/19 Date of : 52 Report #: [id number] THIS REPORT FOR: //name// 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1950 Requested By: Alan Ma Order Number: [id number] Reading MD: Zurdo Weston Measurements Intervals [place] Rate: 122 P: -44 CO: 136 QRS: -54 QRSD: 130 T: 6 QT: 363 QTc: 518 Interpretive Statements Sinus tachycardia early transition Multiple premature complexes, vent & supraven Nonspecific IVCD with LAD Nonspecific T abnormalities, anterior leads Compared to ECG 01/04/2019 08:05:19 Intraventricular conduction delay now present Sinus bradycardia no longer present Electronically Signed On 03-01-2019 11:29:46 SWITCHING CLERK by Zurdo Weston [email or web address] <ELECTRONICALLY SIGNED> By: Zurdo Weston MD, FACC 03/01/19 1129 Zurdo Weston MD, FAC /EPI
--- NOTE | 2019-03-01 14:06 | PATH ---
[facility] [address] [place] [address] PATHOLOGY RPT PROCEDURE Name: MEGHAN JOHNSON Room: [address] IN ..#: [id number] Admission: 02/25/19 Date of : 52 Discharge: 02/28/19 Report #: [id number] Path Case #: [id number] [facility] Accession Number: [id number] . 01 Material submitted: . artery - RIGHT CAROTID PLAQUE. Modifiers: carotid, right . 01 Clinical history: . Right carotid stenosis . 02 Diagnosis: Right carotid plaque: - Fibrointimal atherosclerotic plaque with prominent calcification. (MICHAELA:yogi; 03/01/2019) QMS 03/01/2019 0954 Local . 02 Electronically signed: . Billy Gaviria MD, Pathologist NPI- [id number] . 01 Gross description: . Received in formalin labeled "Meghan Johnson, right carotid plaque," are three roughly tubular segments of yellow-schultz to hemorrhagic, rubbery to grossly calcified tissue ranging from 1.4 x 0.8 x 0.6 cm to 3.6 x 0.8 x 0.6 cm in greatest dimensions. Serial sectioning reveals yellow-schultz to slightly calcified cut surfaces. The specimen is submitted representatively in cassette A1, following decalcification. (DAC; 02/26/2019) XDC/XDC 02/26/2019 0858 Local . 02 Pathologist provided ICD-10: I65.21 . 02 CPT . 664495, 783359 Specimen Comment: A courtesy copy of this report has been sent to [phone] Specimen Comment: Report sent to and Performed at: [address], [place] [id number] MD Koko Yoder MD Phone: [phone] Performed at: 02 [facility] [address], [place], [place] [id number] MD Billy Gaviria MD Phone: [phone]
== END 2019-02-28 11:30 | disposition home health service (06) | DRG 38 ==
LOC: M.PRE 06:59 → M.TBA 09:31 → M.ICU 09:31 → M.PRE 09:46 → M.TBA 14:01 → M.ICU 15:00
PROVIDERS: Internal Medicine; Nurse Practitioner Family; Surgery Vascular Surgery; ADMIT Internal Medicine
PROC: 03CK0ZZ Extirpation of Matter from Right Internal Carotid Artery, Open Approach (ICD-10-PCS; principal; 2019-02-25)
PROC: 03UK0JZ Supplement Right Internal Carotid Artery with Synthetic Substitute, Open Approach (ICD-10-PCS; 2019-02-25)
DX: I65.21 Occlusion and stenosis of right carotid artery (principal); D68.59 Other primary thrombophilia; L76.32 Postprocedural hematoma of skin and subcutaneous tissue following other procedure; Y83.8 Other surgical procedures as the cause of abnormal reaction of the patient, or of later complication, without mention of misadventure at the time of the procedure; Y92.230 Patient room in hospital as the place of occurrence of the external cause; I25.10 Atherosclerotic heart disease of native coronary artery without angina pectoris; E11.51 Type 2 diabetes mellitus with diabetic peripheral angiopathy without gangrene; Z96.1 Presence of intraocular lens; F17.210 Nicotine dependence, cigarettes, uncomplicated; K21.9 Gastro-esophageal reflux disease without esophagitis; I35.0 Nonrheumatic aortic (valve) stenosis; E11.22 Type 2 diabetes mellitus with diabetic chronic kidney disease; I12.9 Hypertensive chronic kidney disease with stage 1 through stage 4 chronic kidney disease, or unspecified chronic kidney disease; N18.2 Chronic kidney disease, stage 2 (mild); F32.9 Major depressive disorder, single episode, unspecified; I95.9 Hypotension, unspecified; I48.91 Unspecified atrial fibrillation; E78.5 Hyperlipidemia, unspecified; Z86.73 Personal history of transient ischemic attack (TIA), and cerebral infarction without residual deficits; Z79.01 Long term (current) use of anticoagulants; Z79.84 Long term (current) use of oral hypoglycemic drugs; Z79.899 Other long term (current) drug therapy; Z95.5 Presence of coronary angioplasty implant and graft; Z98.42 Cataract extraction status, left eye; Z98.41 Cataract extraction status, right eye; Z89.611 Acquired absence of right leg above knee; I25.2 Old myocardial infarction

== ENCOUNTER 2019-07-19 13:04 | Inpatient (IN) | payer OTHER ==
[~2019-07-19] VITALS: Ht 165.1 cm; Wt 78.9 kg
[~2019-07-19 13:04] MED LIST changes: +ASA81BEC PO
[2019-07-19 13:16] VITALS: BP 204/156
[2019-07-19 13:36] LABS: ABSOLUTE BASOPHILS 0.1 thou/uL (0.0-0.2); ABSOLUTE EOSINOPHILS 0.2 thou/uL (0.0-0.7); ABSOLUTE LYMPHOCYTES 2.1 thou/uL (0.8-5.3); ABSOLUTE MONOCYTES 0.7 thou/uL (0.0-1.2); ABSOLUTE NEUTROPHILS 9.4 thou/uL (1.6-8.1); EOSINOPHILS 1.8 %; HEMATOCRIT 35.9 % (37.0-47.0); HEMOGLOBIN 11.7 gm/dL (12.0-15.0); LYMPHOCYTES 16.6 %; MCH 27.6 pg (26.0-34.0); MCHC 32.7 g/dL (28.0-37.0); MCV 84.3 fL (80.0-100.0); MONOCYTES 5.5 %; MPV 8.5 fl. (7.2-11.1); NUCLEATED RBCS 0 /100WBC; PLATELET COUNT* 297 thou/uL (150-400); POLYS 75.1 %; RBC 4.26 mil/uL (4.20-5.00); WBC 12.6 thou/uL (4.0-11.0)
[2019-07-19 13:47] LABS: PROTIME 9.9 Seconds (9.20-11.50)
[2019-07-19 13:50] LABS: BE -7.7 mmol/L (-2 to +3); PCO2 33.6 mmHg (35.0-45.0); pH 7.329 (7.340-7.450)
[2019-07-19 13:51] LABS: PO2 168.7 mmHg (75.0-100.0)
[2019-07-19 13:53] LABS: CALCIUM 8.9 mg/dL (8.5-10.1); CREATININE 1.6 mg/dL (0.6-1.3); POTASSIUM 4.8 mmol/L (3.5-5.1)
[2019-07-19 14:04] LABS: ALBUMIN 2.7 g/dL (3.4-5.0); TOTAL BILIRUBIN 0.3 mg/dL (<0.1-1.0); TOTAL PROTEIN 6.7 g/dL (6.4-8.2)
[2019-07-19 14:26] LABS: INFLUENZA A ANTIGEN Negative (Negative); INFLUENZA B ANTIGEN Negative (Negative)
[2019-07-19 16:10] VITALS: BP 117/70
--- NOTE | 2019-07-19 16:34 | EKG ---
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: [facility] : 1950 Requested By: Dea Suero Order Number: [id number] Rosa Isela MD: Yariel Cook Measurements Intervals [place] Rate: 145 P: 117 HI: 123 QRS: -42 QRSD: 132 T: 6 QT: 297 QTc: 462 Interpretive Statements Atrial fibrillation with a rapid response Occssional pvc's RBBB and LAFB Compared to ECG 02/27/2019 07:16:42 Atrial fibrillation persists Electronically Signed On 07-19-2019 16:32:32 CDT by Yariel Cook [email or web address] <ELECTRONICALLY SIGNED> By: Yariel Cook MD, FAC 07/19/19 1632 1314 1314 Yariel oCok MD, FAC /EPI
--- NOTE | 2019-07-19 16:34 | EKG ---
[place] [address] ELECTROCARDIOGRAM REPORT Name: PRITI CRISOSTOMO Room: [place] [address] ADM IN [facility].#: [id number] Admission: 07/19/19 Attend Phys: Gilberto Burt, Discharge: Date of : 52 Date of Service: 07/19/19 1410 Report #: [id number] THIS REPORT FOR: //name// [facility] ED Test Date: 2019-07-19 Test Time: 14:10:02 Pat Name: PRITI CRISOSTOMO Department: Room: 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 : 1950 Requested By: Dea Suero Order Number: [id number] MD: Yariel Cook Measurements Intervals [place] Rate: 68 P: 44 NE: 143 QRS: -22 QRSD: 130 T: 17 QT: 430 QTc: 458 Interpretive Statements Sinus rhythm Probable left atrial enlargement Right bundle branch block Compared to ECG 02/27/2019 07:16:42 Atrial fibrillation no longer present Ventricular premature complex(es) no longer present Left anterior fascicular block no longer present Electronically Signed On 07-19-2019 16:33:25 CDT by Yariel Cook [email or web address] <ELECTRONICALLY SIGNED> By: Yariel Cook MD, [facility] 07/19/19 1633 09 09 Yariel Cook MD, [facility] /EPI
[2019-07-19 16:40] VITALS: BP 123/57
[2019-07-19 19:45] VITALS: BP 121/57
[2019-07-19 20:00] VITALS: BP 105/53
[2019-07-20] VITALS: BP 110/67
[2019-07-20 04:00] VITALS: BP 112/63
[2019-07-20 08:03] VITALS: BP 115/48
[2019-07-20 10:26] LABS: ABSOLUTE BASOPHILS 0.1 thou/uL (0.0-0.2); ABSOLUTE EOSINOPHILS 0.2 thou/uL (0.0-0.7); ABSOLUTE LYMPHOCYTES 1.5 thou/uL (0.8-5.3); ABSOLUTE MONOCYTES 0.6 thou/uL (0.0-1.2); ABSOLUTE NEUTROPHILS 6.6 thou/uL (1.6-8.1); BASOPHILS 0.7 %; EOSINOPHILS 2.4 %; HEMOGLOBIN 10.6 gm/dL (12.0-15.0); LYMPHOCYTES 16.8 %; MCH 27.8 pg (26.0-34.0); MCHC 33.1 g/dL (28.0-37.0); MONOCYTES 6.7 %; MPV 8.6 fl. (7.2-11.1); NUCLEATED RBCS 0 /100WBC; PLATELET COUNT* 284 thou/uL (150-400); POLYS 73.4 %; RBC 3.81 mil/uL (4.20-5.00); RDW-CV 15.7 % (10.5-14.5)
[2019-07-20 10:32] LABS: CREATININE 1.8 mg/dL (0.6-1.3); POTASSIUM 4.6 mmol/L (3.5-5.1)
[2019-07-20 11:02] LABS: CHOLESTEROL 260 mg/dL (<200); HDL CHOLESTEROL 30 mg/dL (>40); LDL CHOLESTEROL 170 mg/dL (<100); TC:HDL 8.7 Ratio (Not establshd); TRIGLYCERIDE 304 mg/dL (<150); VLDL 61 mg/dL (<40)
[2019-07-20 11:06] LABS: SERUM ASSESSMENT Clear
[2019-07-20 11:23] VITALS: BP 117/56
--- NOTE | 2019-07-20 13:14 | 2DMMODE ---
[place] [address] 2 D/M-MODE ECHOCARDIOGRAM Name: PRITI CRISOSTOMO Room: [address] IN [facility]#: [id number] Admission: 07/19/19 Attend Phys: Gilberto Burt, Discharge: Date of : 52 Date of Service: 07/20/19 1312 Report #: [id number] THIS REPORT FOR: cc: Ryan Amaro James Eric DO Holkins,Yariel Kelsey MD [facility] ~ APPROVED REPORT Study performed: 07/20/2019 11:13:21 EXAM: Comprehensive 2D, Doppler, and color-flow Echocardiogram Patient Location: In-Patient Room #: [facility] Status: routine BSA: 1.86 HR: 86 bpm BP: 115/48 mmHg Rhythm: NSR Other Information Study Quality: Good Indications Arrhythmia Atrial Fibrillation Hypertension/HDD 2D Dimensions IVSd: 14.08 (7-11mm) LVOT Diam: 21.10 (18-24mm) LVDd: 52.09 mm PWd: 10.02 (7-11mm) Ascending Ao: 33.40 (22-36mm) LVDs: 35.84 (25-40mm) Aortic Root: 32.30 mm Volumes Left Atrial Volume (Systole) LA ESV Index: 53.50 mL/m2 Aortic Valve AoV Peak Jet.: 1.59 m/s AO Peak Gr.: 10.10 mmHg LVOT Max P.68 mmHg AO Mean Gr.: 5.98 mmHg LVOT Mean P.75 mmHg LVOT Max V: 0.96 m/s AO V2 VTI: 34.40 cm LVOT Mean V: 0.60 m/[place] [address] 2 D/M-MODE ECHOCARDIOGRAM Name: PRITI CRISOSTOMO Room: [address] IN ..#: [id number] Admission: 07/19/19 Attend Phys: Gilberto Burt, Discharge: Date of : 52 Date of Service: 07/20/19 1312 Report #: [id number] GLYNN (VTI): 2.30 cm2 LVOT V1 VTI: 22.59 cm Mitral Valve E/A Ratio: 3.13 MV Decel. Time: 171.97 ms MV E Max Jet.: 1.43 m/s MV PHT: 49.87 ms MVA (PHT): 4.41 cm2 TDI E/Lateral E': 11.92 E/Medial E': 17.88 Medial E' Jet.: 0.08 m/s Lateral E' Jet.: 0.12 m/s Pulmonary Valve PV Peak Jet.: 0.91 m/s PV Peak Gr.: 3.29 mmHg Tricuspid Valve RAP Estimate: 5.00 mmHg TR Peak Gr.: 42.92 mmHg RVSP: 47.00 mmHg PA Pressure: 47.00 mmHg Left Ventricle The left ventricle is normal size. There is normal LV segmental wall motion. There is normal left ventricular wall thickness. Left ventricular systolic function is normal. The left ventricular ejection fraction is within the normal range. LVEF is 55%. Grade IV - fixed restrictive diastolic dysfunction. Right Ventricle The right ventricle is normal size. The right ventricular systolic function is normal. Atria Left atrium is moderately dilated. The right atrium size is normal. Aortic Valve Mild aortic valve sclerosis. No aortic regurgitation is present. There is no aortic valvular stenosis. Mitral Valve There is mitral annular calcification. Mild mitral regurgitation. No evidence of mitral valve stenosis[place] [address] 2 D/M-MODE ECHOCARDIOGRAM Name: LOY CRISOSTOMOVÍCTOR Williamson Room: [address]#: [id number] Admission: 07/19/19 Attend Phys: Gilberto Burt, Discharge: Date of : 52 Date of Service: 07/20/19 1312 Report #: [id number] The tricuspid valve is normal in structure. Trace tricuspid regurgitation. Moderate pulmonary hypertension. Pulmonic Valve The pulmonary valve is normal in structure. There is no pulmonic valvular regurgitation. Great Vessels The aortic root is normal in size. IVC is normal in size and collapses >50% with inspiration. Pericardium There is no pericardial effusion. <Conclusion> The left ventricle is normal size. There is normal left ventricular wall thickness. Left ventricular systolic function is normal. The left ventricular ejection fraction is within the normal range. LVEF is 55%. The right ventricle is normal size. Left atrium is moderately dilated. Mild aortic valve sclerosis. No aortic regurgitation is present. There is no aortic valvular stenosis. There is mitral annular calcification. Mild mitral regurgitation. IVC is normal in size and collapses >50% with inspiration. There is no pericardial effusion. There is normal LV segmental wall motion. <ELECTRONICALLY SIGNED> By: Yariel Cook MD, FACC 07/20/191311 11 11 Yariel Cook MD, FACC /INF
[2019-07-20 16:00] VITALS: BP 114/49
[2019-07-20 21:36] VITALS: BP 112/51
[2019-07-21] VITALS (13 sets, daily range): BP systolic 103–144; BP diastolic 41–81
[2019-07-21 05:35] LABS: HEMATOCRIT 31.2 % (37.0-47.0); HEMOGLOBIN 10.2 gm/dL (12.0-15.0); MCH 27.5 pg (26.0-34.0); MCHC 32.6 g/dL (28.0-37.0); MCV 84.5 fL (80.0-100.0); MPV 8.9 fl. (7.2-11.1); NUCLEATED RBCS 0 /100WBC; PLATELET COUNT* 278 thou/uL (150-400); WBC 10.9 thou/uL (4.0-11.0)
[2019-07-21 05:58] LABS: ALBUMIN 2.4 g/dL (3.4-5.0); CREATININE 1.8 mg/dL (0.6-1.3); POTASSIUM 5.1 mmol/L (3.5-5.1); TOTAL BILIRUBIN 0.2 mg/dL (<0.1-1.0); TOTAL PROTEIN 6.1 g/dL (6.4-8.2)
[2019-07-21 06:20] LABS: ABSOLUTE LYMPHOCYTES 0.8 thou/uL (0.8-5.3); ABSOLUTE NEUTROPHILS 10.1 thou/uL (1.6-8.1); PLATELET ESTIMATE ADEQUATE
--- NOTE | 2019-07-21 15:49 | EKG ---
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: : 1950 Requested By: Hailey De Anda Order Number: [id number] Rosa Isela MD: Yariel Cook Measurements Intervals [place] Rate: 63 P: 30 [place]: 153 QRS: -23 QRSD: 135 T: 5 QT: 457 QTc: 468 Interpretive Statements Sinus rhythm Right bundle branch block Compared to ECG 07/19/2019 14:10:02 No significant changes Electronically Signed On 07-21-2019 15:47:37 CDT by Yariel Cook [email or web address] <ELECTRONICALLY SIGNED> By: Yariel Cook MD, [facility] 07/21/19 1547 1542 1542 Yariel Cook MD, [facility] /EPI
--- NOTE | 2019-07-21 16:23 | CARD ---
[address] [address] CARDIAC CATH REPORT Name: PRITI CRISOSTOMO Room: [address] IN [facility]#: [id number] Admission: 07/19/19 Attend Phys: Gilberto Burt MD Discharge: Date of : 52 Report #: [id number] THIS REPORT FOR: //name// cc: Ryan Amaro James Eric DO ~ APPROVED REPORT Study performed: 07/21/2019 12:26:28 Patient Details Patient Status: In-Patient Room #: 200 The patient is a 69 year-old female Event Personnel Pro Byers RTR Monitor, Gerry Colón RN RN, Katlin Keane RN RN, Melissa Stephens RTR CheyenneubJoyce John Paint Brush Maker Procedures Performed Selective coronary arteriography Indication Non-STEMI Risk Factors Peripheral Vascular Disease, Hypercholesterolemia, Hypertension Admission/Lab Medications/Medications given during procedure Fentanyl IV 25 mcg, Midazolam (Versed) IV 1 mg, Lidocaine Subcut 20 ml, Lidocaine Subcut 4 ml, Nitroglycerin IA 200 mcg, Verapamil IA 2.5 mg, Heparin IV 4000 units, Nitroglycerin IA 100 mcg, Verapamil IA 1.25 mg Procedure Narrative The patient was brought electively to the Cardiac Catheterization Laboratory and was prepped and draped in a sterile manner. The right wrist was infiltrated with 2% Lidocaine subcutaneous anesthesia. A Slender Glidesheath sheath was inserted into the right radial artery. Coronary angiography was performed using coronary diagnostic catheters. The right coronary system was accessed and visualized with a Diagnostic JR4 5Fr catheter. The left coronary system was accessed and visualized with a Diagnostic JL3.5 5Fr catheter. The patient tolerated the procedure well and there were no complications associated with the procedure. There was no hematoma. [place]asc [place] [address] CARDIAC CATH REPORT Name: PRITI CRISOSTOMO Room: [address]#: [id number] Admission: 07/19/19 Attend Phys: Gilberto Burt MD Discharge: Date of : 52 Report #: [id number] Intraoperative Conscious Sedation Sedation start time: 1326 Case end Time: 1438 Fentanyl 50 mcg Versed 2 mg Fluoro Time: 6.8 minutes Dose: DAP 12089 cGycm2 867.57 mGy Contrast Type and Amount: Visipaque 98 ml Diagnostic Cath Left Main 20% mid vessel narrowing LAD Marked calcification and tortuosity throughout the LAD with 60-70 percent proximal narrowing and 50% mid vessel narrowing Circumflex Nondominant vessel with 100% mid vessel occlusion with left to left collaterals filling the distal circumflex Right Coronary Dominant vessel with diffuse calcification and moderate tortuosity with 50% proximal and mid vessel narrowings Left Ventriculography Left Ventriculography was not performed. Hemodynamics The aortic pressure is 101/49 mmHg with a mean of 57 mmHg. Conclusion 1. Significant coronary artery disease characterized by the following: A 20% mid left main coronary artery narrowing B marked calcification and tortuosity throughout the LAD with a 60- 70% proximal narrowing and 50% mid vessel narrowing C nondominant circumflex which is totally occluded in its midportion with left to left collaterals filling the distal circumflex D large dominant right coronary artery with calcification and tortuosity throughout with 50% proximal and mid vessel narrowings Recommendations Cardiac Risk Reduction Program [place] [address] CARDIAC CATH REPORT Name: PRITI CRISOSTOMO Room: [address] IN [facility].#: [id number] Admission: 07/19/19 Attend Phys: Gilberto Burt MD Discharge: Date of : 52 Report #: [id number] Diagnostic Cath Approved by: Yariel Cook MD Date/Time: 07/21/2019 16:20:48 <ELECTRONICALLY SIGNED> By: Yariel Cook MD, [facility] 07/21/19 1621 1621 1621Joarabella Cook MD, FACC /INF
[2019-07-22 00:43] VITALS: BP 127/56
[2019-07-22 04:00] VITALS: BP 104/46
[2019-07-22 08:04] VITALS: BP 126/70
--- NOTE | 2019-07-22 09:24 | EKG ---
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 : 1950 Requested By: Hailey De Anda Order Number: [id number] Rosa Isela MD: Yariel Cook Measurements Intervals [place] Rate: 130 P: TN: QRS: -22 QRSD: 134 T: -2 QT: 340 QTc: 500 Interpretive Statements Atrial fibrillation with rapid response Right bundle branch block Compared to ECG 07/21/2019 15:42:16 Sinus rhythm no longer present Electronically Signed On 07-22-2019 9:22:45 CDT by Yariel Cook [email or web address] <ELECTRONICALLY SIGNED> By: Yariel Cook MD, [facility] 07/22/19 0922 0527 0527 Yariel Cook MD, [facility] /EPI
[2019-07-22 11:47] VITALS: BP 120/44
[2019-07-22 12:07] LABS: ABSOLUTE BASOPHILS 0.1 thou/uL (0.0-0.2); ABSOLUTE LYMPHOCYTES 1.3 thou/uL (0.8-5.3); ABSOLUTE MONOCYTES 0.8 thou/uL (0.0-1.2); ABSOLUTE NEUTROPHILS 6.8 thou/uL (1.6-8.1); BASOPHILS 0.7 %; EOSINOPHILS 0.5 %; HEMATOCRIT 28.5 % (37.0-47.0); HEMOGLOBIN 9.4 gm/dL (12.0-15.0); LYMPHOCYTES 14.7 %; MCH 27.9 pg (26.0-34.0); MCHC 33.1 g/dL (28.0-37.0); MCV 84.5 fL (80.0-100.0); MONOCYTES 8.4 %; MPV 8.6 fl. (7.2-11.1); NUCLEATED RBCS 0 /100WBC; PLATELET COUNT* 268 thou/uL (150-400); POLYS 75.7 %; RBC 3.37 mil/uL (4.20-5.00); RDW-CV 16.1 % (10.5-14.5)
[2019-07-22 12:17] LABS: CALCIUM 8.1 mg/dL (8.5-10.1); CREATININE 1.8 mg/dL (0.6-1.3); POTASSIUM 4.8 mmol/L (3.5-5.1)
[2019-07-22 16:00] VITALS: BP 117/45
[2019-07-22 20:00] VITALS: BP 114/44
[2019-07-23] VITALS: BP 123/56
[2019-07-23 04:00] VITALS: BP 113/56
[2019-07-23 07:30] VITALS: BP 126/73
[2019-07-23 12:00] VITALS: BP 112/63
--- NOTE | 2019-07-23 14:46 | EKG ---
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: : 1950 Requested By: Hailey De Anda Order Number: [id number] Rosa Isela MD: Zurdo Weston Measurements Intervals [place] Rate: 59 P: 24 [place]: 169 QRS: -26 QRSD: 134 T: -29 QT: 429 QTc: 425 Interpretive Statements Sinus rhythm Ventricular premature complex Right bundle branch block Compared to ECG 07/22/2019 05:27:28 Ventricular premature complex(es) now present Atrial fibrillation no longer present Electronically Signed On 07-23-2019 14:45:05 CDT by Zurdo Weston [email or web address] <ELECTRONICALLY SIGNED> By: Zurdo Weston MD, FAC 07/23/19 1445 1338 1338 Zurdo Weston MD, FAC /EPI
[2019-07-23] MEDS ORDERED: LOPRESSOR50 MG PO (17:53)
[2019-07-23] MEDS ORDERED: DIGOX125 MCG PO (17:53)
== END 2019-07-23 19:00 | disposition home or self-care (01) | DRG 871 ==
LOC: M.ERS 13:04 → M.2W 15:22 → M.ORTHSURG 15:22 → M.TBA-ER 15:22 → M.ORTHSURG 16:30 → M.2W 07-20 09:31
PROVIDERS: Personal Emergency Response Attendant; Registered Nurse; ADMIT Internal Medicine
PROC: B2111ZZ Fluoroscopy of Multiple Coronary Arteries using Low Osmolar Contrast (ICD-10-PCS; principal; 2019-07-19)
PROC: 4A023N8 Measurement of Cardiac Sampling and Pressure, Bilateral, Percutaneous Approach (ICD-10-PCS; principal; 2019-07-19)
DX: A41.9 Sepsis, unspecified organism (principal); I21.4 Non-ST elevation (NSTEMI) myocardial infarction; J96.00 Acute respiratory failure, unspecified whether with hypoxia or hypercapnia; J15.6 Pneumonia due to other Gram-negative bacteria; I50.31 Acute diastolic (congestive) heart failure; D68.69 Other thrombophilia; I13.0 Hypertensive heart and chronic kidney disease with heart failure and stage 1 through stage 4 chronic kidney disease, or unspecified chronic kidney disease; I73.9 Peripheral vascular disease, unspecified; I25.10 Atherosclerotic heart disease of native coronary artery without angina pectoris; F17.210 Nicotine dependence, cigarettes, uncomplicated; E11.9 Type 2 diabetes mellitus without complications; Z96.1 Presence of intraocular lens; I16.0 Hypertensive urgency; E11.22 Type 2 diabetes mellitus with diabetic chronic kidney disease; N18.9 Chronic kidney disease, unspecified; I48.0 Paroxysmal atrial fibrillation; I25.2 Old myocardial infarction; Z79.82 Long term (current) use of aspirin; Z89.611 Acquired absence of right leg above knee; Z95.5 Presence of coronary angioplasty implant and graft; Z79.84 Long term (current) use of oral hypoglycemic drugs; Z79.899 Other long term (current) drug therapy; Z89.511 Acquired absence of right leg below knee; Z79.01 Long term (current) use of anticoagulants; Z91.14 Patient's other noncompliance with medication regimen; Z20.828 Contact with and (suspected) exposure to other viral communicable diseases

== ENCOUNTER 2019-07-24 02:41 | Inpatient (IN) | payer OTHER ==
[2019-07-24] VITALS (59 sets, daily range): BP systolic 80–204; BP diastolic 32–98
[~2019-07-24] VITALS: Ht 152.4 cm; Wt 69.5 kg
[~2019-07-24 02:41] MED LIST changes: +DIGOX125 MCG PO; +LOPRESSOR50 MG PO
[2019-07-24 03:30] LABS: ABSOLUTE BASOPHILS 0.1 thou/uL (0.0-0.2); ABSOLUTE EOSINOPHILS 0.2 thou/uL (0.0-0.7); ABSOLUTE LYMPHOCYTES 2.5 thou/uL (0.8-5.3); ABSOLUTE MONOCYTES 0.8 thou/uL (0.0-1.2); ABSOLUTE NEUTROPHILS 11.6 thou/uL (1.6-8.1); BASOPHILS 0.8 %; EOSINOPHILS 1.5 %; HEMATOCRIT 35.1 % (37.0-47.0); HEMOGLOBIN 11.3 gm/dL (12.0-15.0); LYMPHOCYTES 16.2 %; MCH 27.4 pg (26.0-34.0); MCHC 32.2 g/dL (28.0-37.0); MONOCYTES 5.1 %; MPV 9.2 fl. (7.2-11.1); NUCLEATED RBCS 0 /100WBC; POLYS 76.4 %; RBC 4.13 mil/uL (4.20-5.00); RDW-CV 16.5 % (10.5-14.5); WBC 15.2 thou/uL (4.0-11.0)
[2019-07-24 03:32] LABS: PLATELET COUNT* 387 thou/uL (150-400)
[2019-07-24 03:36] LABS: URINE BILIRUBIN NEGATIVE (Negative); URINE BLOOD 1+ (Negative); URINE CLARITY CLEAR; URINE COLOR YELLOW; URINE GLUCOSE-RANDOM TRACE (Negative); URINE KETONES NEGATIVE (Negative); URINE LEUKOCYTES-REFLEX NEGATIVE (Negative); URINE NITRITE-REFLEX NEGATIVE (Negative); URINE PROTEIN 3+ (Negative); URINE UROBILINOGEN 0.2 E.U./dl (0.2-1.0)
[2019-07-24 03:43] LABS: APTT 31.5 Seconds (25.0-31.3); CALCIUM 8.1 mg/dL (8.5-10.1); CREATININE 1.8 mg/dL (0.6-1.3); INR 1.3; POTASSIUM 5.4 mmol/L (3.5-5.1); PROTIME 13.3 Seconds (9.20-11.50)
[2019-07-24 03:47] LABS: BE -10.3 mmol/L (-2 to +3); PCO2 42.8 mmHg (35.0-45.0)
[2019-07-24 03:48] LABS: PO2 340.6 mmHg (75.0-100.0); pH 7.217 (7.340-7.450)
[2019-07-24 03:54] LABS: ALBUMIN 2.7 g/dL (3.4-5.0); MAGNESIUM 1.6 mg/dL (1.8-2.4); TOTAL BILIRUBIN 0.2 mg/dL (<0.1-1.0); TOTAL PROTEIN 6.5 g/dL (6.4-8.2)
[2019-07-24 04:10] LABS: AMORPHOUS URATES Moderate /LPF (None Seen); CASTS None Seen /LPF (None Seen); MUCUS 0-3 Light strn/LPF (None Seen); SQUAMOUS 0-3 Few /LPF (0-3); URINE RBC 3-10 Few /HPF (0-2); URINE WBC-REFLEX 0-5 Rare /HPF (0-5)
[2019-07-24 05:16] LABS: BE -8.8 mmol/L (-2 to +3); PCO2 33.2 mmHg (35.0-45.0); PO2 106.2 mmHg (75.0-100.0); pH 7.313 (7.340-7.450)
[2019-07-24 09:40] LABS: AMP/METHAMP Negative (Negative); BARBITURATES Negative (Negative); BENZODIAZEPINES Negative (Negative); COCAINE Negative (Negative); METHADONE Negative (Negative); OPIATES Negative (Negative); PCP Negative (Negative); THC Negative (Negative)
[2019-07-25] VITALS (27 sets, daily range): BP systolic 93–141; BP diastolic 40–78
[2019-07-25 05:40] LABS: ABSOLUTE EOSINOPHILS 0.1 thou/uL (0.0-0.7); ABSOLUTE LYMPHOCYTES 1.1 thou/uL (0.8-5.3); BASOPHILS 0.4 %; EOSINOPHILS 0.9 %; HEMATOCRIT 30.4 % (37.0-47.0); HEMOGLOBIN 10.1 gm/dL (12.0-15.0); MCHC 33.2 g/dL (28.0-37.0); RDW-CV 16.1 % (10.5-14.5); WBC 8.8 thou/uL (4.0-11.0)
[2019-07-25 05:42] LABS: ABSOLUTE MONOCYTES 0.7 thou/uL (0.0-1.2); ABSOLUTE NEUTROPHILS 6.8 thou/uL (1.6-8.1); LYMPHOCYTES 12.8 %; MCH 27.7 pg (26.0-34.0); MCV 83.4 fL (80.0-100.0); MONOCYTES 8.2 %; MPV 8.9 fl. (7.2-11.1); NUCLEATED RBCS 0 /100WBC; POLYS 77.7 %; RBC 3.64 mil/uL (4.20-5.00)
[2019-07-25 05:54] LABS: PLATELET COUNT* 305 thou/uL (150-400)
[2019-07-25 06:07] LABS: CALCIUM 8.1 mg/dL (8.5-10.1); CREATININE 1.8 mg/dL (0.6-1.3); POTASSIUM 4.1 mmol/L (3.5-5.1)
--- NOTE | 2019-07-25 08:43 | CON ---
[address] [address] CONSULTATION Name: KRANTHIPRITI L Room: [address] IN M.R.#: [id number] Admission: 07/24/19 Attend Phys: Michelet Nino Discharge: Date of : 52 Report #: [id number] THIS REPORT FOR: //name// cc: Ryan Amaro James Eric DO THIS REPORT FOR: //name// CC: Michelet Limon DATE OF SERVICE: 07/24/2019 INFECTIOUS DISEASE CONSULTATION ATTENDING PHYSICIAN: Dr. Duque. REASON FOR EVALUATION: Severe pneumonitis, complicated by respiratory failure and on mechanical ventilatory support. HISTORY OF PRESENT ILLNESS: Chart reviewed, patient examined. This is a 69-year-old woman with known history of underlying lung disease, has generally widespread vasculopathy as well, who was actually discharged from the hospital, only had been at home for short time and was readmitted with progressive dyspnea. She did have respiratory failure and ultimately was intubated. Review of record showed her being hospitalized for several days over the course of the last week. She was concerned to have a pneumonitis. She was COVID negative at that point. Also had issues with cardiac dysrhythmias and rapid atrial fibrillation. This was improved and she was felt to be stable and discharged. It is noted that she is an ongoing smoker. Initial ABG on return showed pH 7.217, pCO2 of 42.8, pO2 of 340.6 that was on a FiO2 of 100%. Lactic acid was in normal range at 1.3. Troponin 0.08. Urinalysis showed 0-5 white cells. Chest x-ray showed bilateral perihilar interstitial pulmonary infiltrates, interval increase since previous. Drug screen was negative. Started empirically on therapy with piperacillin and tazobactam, given a dose of levofloxacin as well. ALLERGIES: None known. CURRENT MEDICATIONS: Include propofol, pantoprazole, ipratropium and albuterol inhaler, insulin sliding scale, Zosyn and Levaquin. PAST MEDICAL HISTORY: As noted above, COPD with respiratory compromise, peripheral vascular disease with previous right cwmrz-sof-xgfr amputation, hypertension, has known atherosclerotic coronary artery disease with stenting, history of cardiac dysrhythmias, notably atrial fibrillation, diabetes mellitus type 2, bilateral cataracts, [place] [address] CONSULTATION Name: LOY CRISOSTOMOVÍCTOR Williamson Room: [address]#: [id number] Admission: 07/24/19 Attend Phys: Michelet Nino Discharge: Date of : 52 Report #: [id number] SOCIAL HISTORY: Smokes a pack a day for 50 years. No illicit drug use. No ethanol. FAMILY HISTORY: Noncontributory. REVIEW OF SYSTEMS: Not obtainable. PHYSICAL EXAMINATION: GENERAL: She is lying supine. She is intubated. She has an ET and OG tube in place, appears somewhat chronically ill. VITAL SIGNS: Temperature 97.1, pulse 62, respirations 20, blood pressure 152/48. SKIN: Warm, dry, no rashes. HEENT: Neck is supple. LUNGS: Scattered coarse breath sounds. HEART: Rate controlled, generally appears regular. ABDOMEN: Mildly distended, soft. There are no peritoneal signs. 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 No cyanosis or edema. GENITOURINARY: Deferred. RECTAL: Deferred. LABORATORY DATA: Drug screen negative. Troponin 0.08. Chest x-ray as described above. Followup ABGs this morning showed pH 7.313, pCO2 of 33.2, pO2 of 106.2, FiO2 of 70%. Initial CBC showed white count of 15.2, H and H 11.3 and 35.1, platelets of 387,000, primary neutrophilia. Electrolytes showed sodium 140, potassium 5.4, chloride 110, bicarbonate is 20, anion gap of 10, BUN and creatinine 36 and 1.8, glucose of 282. LFTs unremarkable. Albumin of 2.7, total protein 6.5. ASSESSMENT AND PLAN: Pneumonitis, likely multifactorial. This is complicated by respiratory failure requiring mechanical ventilatory support. I think it is reasonable to continue empiric antimicrobial therapy. It certainly cannot exclude a component of infection in this situation, certainly at risk for aspiration. Current therapy seems reasonable and will have to monitor expectantly. Continue efforts to wean off support. Certainly at risk for nosocomial-related infectious complications as well. Blood, urine and sputum cultures in progress. <ELECTRONICALLY SIGNED> By: Ankit Morrison MD 07/25/19 0843 1006 1030Jojairo Morrison MD /nt
[2019-07-26] VITALS (28 sets, daily range): BP systolic 98–152; BP diastolic 28–70
[2019-07-26 05:13] LABS: ABSOLUTE BASOPHILS 0.1 thou/uL (0.0-0.2); ABSOLUTE EOSINOPHILS 0.1 thou/uL (0.0-0.7); ABSOLUTE LYMPHOCYTES 1.7 thou/uL (0.8-5.3); ABSOLUTE MONOCYTES 0.9 thou/uL (0.0-1.2); BASOPHILS 0.9 %; EOSINOPHILS 1.4 %; HEMATOCRIT 29.9 % (37.0-47.0); LYMPHOCYTES 19.5 %; MCH 27.9 pg (26.0-34.0); MCHC 33.3 g/dL (28.0-37.0); MCV 83.8 fL (80.0-100.0); MONOCYTES 9.9 %; MPV 8.5 fl. (7.2-11.1); NUCLEATED RBCS 0 /100WBC; PLATELET COUNT* 322 thou/uL (150-400); POLYS 68.3 %; RBC 3.57 mil/uL (4.20-5.00); RDW-CV 16.2 % (10.5-14.5); WBC 8.8 thou/uL (4.0-11.0)
[2019-07-26 07:03] LABS: CALCIUM 7.9 mg/dL (8.5-10.1); CREATININE 1.8 mg/dL (0.6-1.3); POTASSIUM 3.8 mmol/L (3.5-5.1)
[2019-07-26 10:08] LABS: PCO2 38.8 mmHg (35.0-45.0); PO2 89.4 mmHg (75.0-100.0); pH 7.371 (7.340-7.450)
--- NOTE | 2019-07-26 13:09 | EKG ---
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: [place] : 1950 Requested By: Dea Suero Order Number: [id number] Reading MD: Zurdo Weston Measurements Intervals [place] Rate: 63 P: 36 [place]: 160 QRS: -53 QRSD: 138 T: 47 QT: 451 QTc: 462 Interpretive Statements Sinus rhythm Ventricular premature complex RBBB and LAFB Baseline wander in lead(s) V5 Compared to ECG 07/23/2019 13:38:01 pvc now present Electronically Signed On 07-26-2019 13:07:53 CDT by Zurdo Weston [email or web address] <ELECTRONICALLY SIGNED> By: Zurdo Weston MD, FACC 07/26/19 1307 0321 0321 Zurdo Weston MD, FAC /EPI
[2019-07-27] VITALS (14 sets, daily range): BP systolic 96–134; BP diastolic 34–73
[2019-07-27 05:02] LABS: ABSOLUTE BASOPHILS 0.1 thou/uL (0.0-0.2); ABSOLUTE EOSINOPHILS 0.2 thou/uL (0.0-0.7); ABSOLUTE LYMPHOCYTES 1.8 thou/uL (0.8-5.3); ABSOLUTE MONOCYTES 1.1 thou/uL (0.0-1.2); ABSOLUTE NEUTROPHILS 6.3 thou/uL (1.6-8.1); BASOPHILS 0.6 %; EOSINOPHILS 2.2 %; HEMATOCRIT 28.8 % (37.0-47.0); HEMOGLOBIN 9.6 gm/dL (12.0-15.0); LYMPHOCYTES 18.7 %; MCH 27.9 pg (26.0-34.0); MCHC 33.3 g/dL (28.0-37.0); MCV 83.7 fL (80.0-100.0); MONOCYTES 11.3 %; MPV 8.3 fl. (7.2-11.1); NUCLEATED RBCS 0 /100WBC; PLATELET COUNT* 297 thou/uL (150-400); POLYS 67.2 %; RBC 3.45 mil/uL (4.20-5.00); RDW-CV 15.9 % (10.5-14.5); WBC 9.4 thou/uL (4.0-11.0)
[2019-07-28 04:00] VITALS: BP 115/47
[2019-07-28 06:02] LABS: ABSOLUTE EOSINOPHILS 0.2 thou/uL (0.0-0.7); ABSOLUTE LYMPHOCYTES 1.8 thou/uL (0.8-5.3); ABSOLUTE MONOCYTES 0.8 thou/uL (0.0-1.2); ABSOLUTE NEUTROPHILS 5.6 thou/uL (1.6-8.1); BASOPHILS 0.5 %; EOSINOPHILS 2.2 %; HEMATOCRIT 27.3 % (37.0-47.0); HEMOGLOBIN 9.1 gm/dL (12.0-15.0); LYMPHOCYTES 20.9 %; MCH 27.8 pg (26.0-34.0); MCHC 33.4 g/dL (28.0-37.0); MCV 83.2 fL (80.0-100.0); MONOCYTES 9.5 %; MPV 8.7 fl. (7.2-11.1); NUCLEATED RBCS 0 /100WBC; PLATELET COUNT* 281 thou/uL (150-400); POLYS 66.9 %; RBC 3.28 mil/uL (4.20-5.00); WBC 8.4 thou/uL (4.0-11.0)
[2019-07-28 06:26] LABS: CALCIUM 8.1 mg/dL (8.5-10.1); CREATININE 1.8 mg/dL (0.6-1.3); POTASSIUM 3.3 mmol/L (3.5-5.1)
[2019-07-28 07:45] VITALS: BP 123/42
[2019-07-28 13:14] VITALS: BP 153/41
[2019-07-28 18:58] VITALS: BP 155/69
[2019-07-28 20:15] VITALS: BP 115/58
[2019-07-29] VITALS: BP 149/40
[2019-07-29 04:00] VITALS: BP 137/43
[2019-07-29 05:33] LABS: ABSOLUTE EOSINOPHILS 0.2 thou/uL (0.0-0.7); ABSOLUTE LYMPHOCYTES 1.3 thou/uL (0.8-5.3); ABSOLUTE NEUTROPHILS 6.4 thou/uL (1.6-8.1); BASOPHILS 0.3 %; EOSINOPHILS 2.1 %; HEMOGLOBIN 8.9 gm/dL (12.0-15.0); LYMPHOCYTES 14.1 %; MCH 28.5 pg (26.0-34.0); MCHC 34.2 g/dL (28.0-37.0); MCV 83.5 fL (80.0-100.0); MONOCYTES 11.2 %; MPV 8.2 fl. (7.2-11.1); NUCLEATED RBCS 0 /100WBC; PLATELET COUNT* 281 thou/uL (150-400); POLYS 72.3 %; RBC 3.11 mil/uL (4.20-5.00); RDW-CV 15.9 % (10.5-14.5); WBC 8.9 thou/uL (4.0-11.0)
[2019-07-29 05:38] LABS: CALCIUM 8.6 mg/dL (8.5-10.1); CREATININE 1.8 mg/dL (0.6-1.3); POTASSIUM 4.2 mmol/L (3.5-5.1)
[2019-07-29 07:30] VITALS: BP 124/60
[2019-07-29 12:00] VITALS: BP 141/65
[2019-07-29 16:45] VITALS: BP 131/49
[2019-07-29 20:00] VITALS: BP 124/45
[2019-07-30 00:25] VITALS: BP 125/51
[2019-07-30 04:38] VITALS: BP 128/46
[2019-07-30 08:00] VITALS: BP 106/41
[2019-07-30 12:28] VITALS: BP 135/40
[2019-07-30] MEDS ORDERED: DEMADEX20 MG PO (12:43)
[2019-07-30] MEDS ORDERED: KLOR-CON 10 ER10 MEQ PO (12:44)
== END 2019-07-30 14:30 | disposition home or self-care (01) | DRG 871 ==
LOC: M.ERS 02:41 → M.2W 04:33 → M.TBA-ER 04:33 → M.ICU 04:33 → M.2W 07-27 08:29
PROVIDERS: Internal Medicine; Internal Medicine Pulmonary Disease; Personal Emergency Response Attendant; ADMIT Family Medicine
DX: A41.9 Sepsis, unspecified organism (principal); J18.9 Pneumonia, unspecified organism; J96.20 Acute and chronic respiratory failure, unspecified whether with hypoxia or hypercapnia; I50.33 Acute on chronic diastolic (congestive) heart failure; D68.69 Other thrombophilia; J44.1 Chronic obstructive pulmonary disease with (acute) exacerbation; I13.0 Hypertensive heart and chronic kidney disease with heart failure and stage 1 through stage 4 chronic kidney disease, or unspecified chronic kidney disease; I73.9 Peripheral vascular disease, unspecified; I25.10 Atherosclerotic heart disease of native coronary artery without angina pectoris; E11.51 Type 2 diabetes mellitus with diabetic peripheral angiopathy without gangrene; Z96.1 Presence of intraocular lens; F17.210 Nicotine dependence, cigarettes, uncomplicated; N18.3 Chronic kidney disease, stage 3 (moderate); E11.22 Type 2 diabetes mellitus with diabetic chronic kidney disease; E11.65 Type 2 diabetes mellitus with hyperglycemia; M25.531 Pain in right wrist; I48.0 Paroxysmal atrial fibrillation; I65.23 Occlusion and stenosis of bilateral carotid arteries; D64.9 Anemia, unspecified; Z91.14 Patient's other noncompliance with medication regimen; Z79.01 Long term (current) use of anticoagulants; Z89.511 Acquired absence of right leg below knee; Z95.5 Presence of coronary angioplasty implant and graft; I25.2 Old myocardial infarction; Z98.62 Peripheral vascular angioplasty status; Z79.82 Long term (current) use of aspirin; Z79.84 Long term (current) use of oral hypoglycemic drugs; Z79.899 Other long term (current) drug therapy

== ENCOUNTER → 2019-08-12 | Outpatient (CLI) | payer OTHER ==
[~2019-08-12] MED LIST changes: +DEMADEX20 MG PO; +KLOR-CON 10 ER10 MEQ PO
[2019-08-12 14:56] LABS: ABSOLUTE EOSINOPHILS 0.2 thou/uL (0.0-0.7); ABSOLUTE LYMPHOCYTES 1.5 thou/uL (0.8-5.3); ABSOLUTE MONOCYTES 0.5 thou/uL (0.0-1.2); ABSOLUTE NEUTROPHILS 6.9 thou/uL (1.6-8.1); BASOPHILS 0.3 %; EOSINOPHILS 2.2 %; HEMATOCRIT 33.3 % (37.0-47.0); HEMOGLOBIN 10.9 gm/dL (12.0-15.0); MCH 27.3 pg (26.0-34.0); MCHC 32.6 g/dL (28.0-37.0); MCV 83.7 fL (80.0-100.0); NUCLEATED RBCS 0 /100WBC; PLATELET COUNT* 342 thou/uL (150-400); POLYS 75.5 %; RBC 3.98 mil/uL (4.20-5.00); RDW-CV 16.3 % (10.5-14.5); WBC 9.2 thou/uL (4.0-11.0)
[2019-08-12 15:05] LABS: CALCIUM 8.2 mg/dL (8.5-10.1); CREATININE 1.7 mg/dL (0.6-1.3); POTASSIUM 4.6 mmol/L (3.5-5.1)
== END ==
LOC: M.LAB 14:22
PROVIDERS: Registered Nurse
DX: I50.32 Chronic diastolic (congestive) heart failure (principal); D50.9 Iron deficiency anemia, unspecified

== ENCOUNTER 2020-04-09 01:00 | Inpatient (IN) | payer OTHER ==
[2020-04-09] VITALS (7 sets, daily range): BP systolic 101–165; BP diastolic 48–77
[~2020-04-09] VITALS: Ht 165.1 cm; Wt 69.8 kg
[2020-04-09 01:40] LABS: ABSOLUTE BASOPHILS 0.1 thou/uL (0.0-0.2); ABSOLUTE EOSINOPHILS 0.2 thou/uL (0.0-0.7); ABSOLUTE LYMPHOCYTES 2.1 thou/uL (0.8-5.3); ABSOLUTE MONOCYTES 0.5 thou/uL (0.0-1.2); ABSOLUTE NEUTROPHILS 6.4 thou/uL (1.6-8.1); BASOPHILS 0.7 %; EOSINOPHILS 2.3 %; HEMATOCRIT 36.5 % (37.0-47.0); HEMOGLOBIN 11.9 gm/dL (12.0-15.0); LYMPHOCYTES 22.8 %; MCH 27.4 pg (26.0-34.0); MCHC 32.6 g/dL (28.0-37.0); MCV 84.1 fL (80.0-100.0); MONOCYTES 5.7 %; MPV 8.8 fl. (7.2-11.1); NUCLEATED RBCS 0 /100WBC; PLATELET COUNT* 253 thou/uL (150-400); POLYS 68.5 %; RBC 4.34 mil/uL (4.20-5.00); RDW-CV 15.7 % (10.5-14.5); WBC 9.4 thou/uL (4.0-11.0)
[2020-04-09 01:41] LABS: CREATININE 1.5 mg/dL (0.6-1.3); POTASSIUM 5.1 mmol/L (3.5-5.1)
[2020-04-09 01:44] LABS: PROTIME 10.3 Seconds (9.20-11.50)
[2020-04-09 01:52] LABS: ALBUMIN 2.9 g/dL (3.4-5.0); MAGNESIUM 1.8 mg/dL (1.8-2.4); TOTAL BILIRUBIN 0.4 mg/dL (<0.1-1.0); TOTAL PROTEIN 6.5 g/dL (6.4-8.2)
[2020-04-09 03:04] LABS: INFLUENZA A ANTIGEN Negative (Negative); INFLUENZA B ANTIGEN Negative (Negative)
[2020-04-09 03:19] LABS: URINE BILIRUBIN NEGATIVE (Negative); URINE BLOOD TRACE (Negative); URINE CLARITY CLEAR; URINE COLOR YELLOW; URINE GLUCOSE-RANDOM TRACE (Negative); URINE KETONES NEGATIVE (Negative); URINE LEUKOCYTES-REFLEX NEGATIVE (Negative); URINE NITRITE-REFLEX NEGATIVE (Negative); URINE PROTEIN 2+ (Negative); URINE UROBILINOGEN 0.2 E.U./dl (0.2-1.0)
[2020-04-09 03:37] LABS: CASTS None Seen /LPF (None Seen)
[2020-04-09 03:39] LABS: SQUAMOUS 0-3 Few /LPF (0-3)
[2020-04-09 03:40] LABS: BACTERIA-REFLEX 1-9 Few /HPF (None Seen); CRYSTALS None Seen /LPF (None Seen); URINE RBC 3-10 Few /HPF (0-2); URINE WBC-REFLEX None Seen /HPF (0-5)
--- NOTE | 2020-04-09 12:00 | CON ---
[address] [address] CONSULTATION Name: PRITI CRISOSTOMO Teri Room: [address] IN M.R.#: [id number] Admission: 04/09/20 Attend Phys: Tamiko Soto MD Discharge: Date of : 52 Report #: [id number] THIS REPORT FOR: cc: Ryan Amaro James Eric DO ~ Zurdo Weston MD [facility] DATE OF SERVICE: 04/09/2020 CARDIOLOGY CONSULTATION HISTORY OF PRESENT ILLNESS: The patient is a 69-year-old white female who I was asked to see in the hospital after she was noted to be in atrial fibrillation. The history is obtained from the patient as well as some old records. The patient receives most of her care at [facility]. However, she has been hospitalized here at [facility] in the past. She was here in 01/2019 with a syncopal spell and a TIA. She was found to have a carotid stenosis. She was discharged and eventually underwent bilateral carotid endarterectomy, which I believe at [facility]. She actually underwent cardiac catheterization here at [facility] in 07/[address] Cook. She had a non-STEMI. The procedure was performed from the right radial artery. She was found to have a 60% narrowing of the LAD. Circumflex was completely occluded. Right coronary had 50% stenosis. No ventriculogram was performed. Medical therapy was recommended. The patient was admitted here in July of this year with shortness of breath, felt to be secondary to COPD. She did go into an episode of atrial fibrillation. She was placed on Xarelto. The patient has a long history of PAD. She has had previous bilateral iliac stents. She developed a sore on her right foot and eventually underwent right aoagn-mfh-oolg amputation at [facility]. At this time, she is primarily in wheelchair. Unfortunately, she continues to smoke a pack of cigarettes a day. The patient states recently she has had a cough. However, last night, she became acutely short of breath and her called the ambulance. She was brought here to [facility] to be in atrial fibrillation. She was started on intravenous diltiazem. I was asked to see her for further evaluation and treatment. She denies recent chest pain, fever, palpitations or syncope. PAST MEDICAL HISTORY: She has had previous bilateral carotid endarterectomies. She had a hysterectomy, diabetes, hypertension. MEDICATIONS: She has been on insulin in the past. Apparently at this time, she quit taking all of her medications. However, in the past the medications included metformin, Xarelto, Accupril, Lipitor, metoprolol, Paxil, Imdur, Protonix, digoxin, torsemide, potassium. ALLERGIES: She has no known drug allergies. [place] [address] CONSULTATION Name: LOY CRISOSTOMOVÍCTOR Williamson [address] [id number] Admission: 04/09/20 Attend Phys: Tamiko Soto MD Discharge: Date of : 52 Report #: [id number] sugars at home. FAMILY HISTORY: Negative for heart disease. SOCIAL HISTORY: She is . She and her live in [place]. Smokes a pack of cigarettes a day. No alcohol abuse, no illicit drug use. REVIEW OF SYSTEMS: She had a previous TIA involving the left side of her face. She denies a history of asthma, liver disease, kidney disease, cancer, psychiatric illness, chronic skin condition. PHYSICAL EXAMINATION: GENERAL: Revealed an elderly female lying in bed. She appeared in no acute distress. VITAL SIGNS: She had a blood pressure of 120/60, pulse is 90 and irregular. She is afebrile. HEENT: She was anicteric. Conjunctivae are pink. Mucous membranes moist. NECK: Veins do not appear distended, bilateral carotid bruits are heard. CHEST: Revealed decreased breath sounds. CARDIOVASCULAR: Irregular rhythm. No significant murmur. ABDOMEN: Soft. EXTREMITIES: Left lower extremity had no edema. Dorsalis pedis pulse on the left cannot be palpated. SKIN: Cool and dry. NEUROLOGIC: Nonfocal. RADIOLOGICAL DATA: Her ECG on admission showed atrial fibrillation with a rapid ventricular response rate. However, initial ECG in the Emergency Room at 1:00 a.m. actually showed sinus tachycardia with a right bundle branch block and a PVC. No acute ST or T-wave changes were noted. Her workup, she actually had an echocardiogram in July of this year that showed an ejection fraction of 50%, left atrial enlargement, aortic sclerosis, mild mitral regurgitation. X-rays last night, chest x-ray was pending. She had a chest x-ray in July however that showed small effusions, pulmonary edema. Carotid Doppler study performed a year ago showed evidence of stenosis of the right carotid endarterectomy before she had her endarterectomy. LABORATORY WORK: Last night, sodium 137, potassium 5.1, BUN 25, creatinine 1.5. Her liver function studies were normal. Albumin 2.9. Troponin mildly elevated at 0.42. BNP 9091. Lipid profile in July, cholesterol 260, triglyceride 304, HDL 30, LDL 170. TSH last time was 1.9. White blood cell count 9.4, hemoglobin 11.9. IMPRESSION AND RECOMMENDATIONS: [address] [place] [address] CONSULTATION Name: PRITI CRISOSTOMO Room: [address] IN .R.#: [id number] Admission: 04/09/20 Attend Phys: Tamiko Soto MD Discharge: Date of : 52 Report #: [id number] 1. Atrial fibrillation. Previous history of atrial fibrillation. At this time, I would aim for rate control with a beta matilde and digoxin. I would not recommend attempts at anticoagulation. I would resume anticoagulation with Xarelto. 2. Diabetes. 3. Hypertension. The patient has been on ANKITA inhibitor and beta matilde. Unfortunately, stopped taking all her medications. 4. Hyperlipidemia. The patient is on a statin drug. 5. Coronary artery disease. No recent angina. I would continue medical therapy. 6. Chronic obstructive pulmonary disease. 7. Tobacco abuse. 8. Previous bilateral carotid endarterectomy, asymptomatic. I would recommend anticoagulation with Xarelto. 9. Peripheral arterial disease with previous amputation stents. The patient is primarily in a wheelchair. <ELECTRONICALLY SIGNED> By: Zurdo Weston MD, FACC 04/09/20 1200 0847 0916Damerced Weston MD, FACC /nt
[2020-04-09 16:49] LABS: CHOLESTEROL 285 mg/dL (<200); HDL CHOLESTEROL 33 mg/dL (>40); LDL CHOLESTEROL 211 mg/dL (<100); TC:HDL 8.6 Ratio (Not establshd); TRIGLYCERIDE 208 mg/dL (<150); VLDL 42 mg/dL (<40)
[2020-04-09 16:55] LABS: SERUM ASSESSMENT Clear
[2020-04-10 01:00] VITALS: BP 145/62
[2020-04-10 03:50] VITALS: BP 145/58
[2020-04-10 04:45] LABS: CALCIUM 8.9 mg/dL (8.5-10.1); CREATININE 1.7 mg/dL (0.6-1.3); POTASSIUM 4.5 mmol/L (3.5-5.1)
[2020-04-10 08:00] VITALS: BP 160/85
[2020-04-10 12:00] VITALS: BP 148/65
--- NOTE | 2020-04-10 13:17 | 2DMMODE ---
[place] [address] 2 D/M-MODE ECHOCARDIOGRAM Name: PRITI CRISOSTOMO Teri Room: [address] IN [facility]#: [id number] Admission: 04/09/20 Attend Phys: Tamiko Soto MD Discharge: Date of : 52 Date of Service: 04/10/20 1317 Report #: [id number] THIS REPORT FOR: cc: Ryan Amaro James Eric DO Blick,Zurdo Daniel MD [facility] ~ APPROVED REPORT Study performed: 04/10/2020 10:50:02 EXAM: Comprehensive 2D, Doppler, and color-flow Echocardiogram Patient Location: In-Patient Room #: [facility] Status: routine BSA: 1.77 HR: 61 bpm BP: 160/85 mmHg Rhythm: NSR Other Information Study Quality: Good Indications Dyspnea 2D Dimensions IVSd: 13.18 (7-11mm) LVDd: 47.28 mm PWd: 8.37 (7-11mm) LVDs: 33.33 (25-40mm) Volumes Left Atrial Volume (Systole) LA ESV Index: 58.80 mL/m2 Left Ventricle The left ventricle is normal size. There is global hypokinesis of the left ventricle. Mild concentric left ventricular hypertrophy. Left ventricular systolic function is mildly decreased. LVEF is 40-45%. Right Ventricle The right [place] [address] 2 D/M-MODE ECHOCARDIOGRAM Name: PRITI CRISOSTOMO Room: [address] IN [facility].#: [id number] Admission: 04/09/20 Attend Phys: Tamiko Soto MD Discharge: Date of : 52 Date of Service: 04/10/207 Report #: [id number] Atria Left atrium is severely dilated. Aortic Valve Mild aortic valve sclerosis. No aortic regurgitation is present. There is no aortic valvular stenosis. Mitral Valve There is mitral annular calcification. The mitral valve is normal in structure. There is no mitral valve regurgitation noted. No evidence of mitral valve stenosis. Tricuspid Valve The tricuspid valve is normal in structure. There is no tricuspid valve regurgitation noted. Pulmonic Valve Pulmonic valve is not well visualized. Great Vessels The aortic root is normal in size. IVC is normal in size and collapses >50% with inspiration. Pericardium There is no pericardial effusion. <Conclusion> Mild concentric left ventricular hypertrophy. LVEF is 40-45%. Left atrium is severely dilated. Mild aortic valve sclerosis. <ELECTRONICALLY SIGNED> By: Zurdo Weston MD, [facility] 04/10/20 1317 1317 1317 Zurdo Weston MD, FACC /INF
--- NOTE | 2020-04-10 13:46 | EKG ---
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: : 1950 Requested By: Erica Quick Order Number: [id number] MD: Zurdo Weston Measurements Intervals [place] Rate: 103 P: 67 MS: 149 QRS: -57 QRSD: 123 T: 27 QT: 360 QTc: 471 Interpretive Statements Sinus tachycardia Ventricular premature complex Probable left atrial enlargement RBBB and LAFB Compared to ECG 07/24/2019 03:21:55 Sinus rhythm no longer present Electronically Signed On 04-10-2020 13:45:54 SHEEP FARM WORKER by Zurdo Weston [email or web address] <ELECTRONICALLY SIGNED> By: Zurdo Weston MD, [facility] 04/10/20 1345 4 4 Zurdo Weston MD, [facility] /EPI
--- NOTE | 2020-04-10 13:54 | EKG ---
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 : 1950 Requested By: Zurdo Weston Order Number: [id number] Reading MD: Zurdo Weston Measurements Intervals [place] Rate: 58 P: 39 SC: 176 QRS: -41 QRSD: 134 T: 20 QT: 448 QTc: 441 Interpretive Statements Sinus rhythm RBBB and LAFB LVH with secondary repolarization abnormality Compared to ECG 04/09/2020 01:05:02 Left ventricular hypertrophy now present Sinus tachycardia no longer present Ventricular premature complex(es) no longer present Electronically Signed On 04-10-2020 13:54:00 ADDICTIONS COUNSELOR ASSISTANT by Zurdo Weston [email or web address] <ELECTRONICALLY SIGNED> By: Zurdo Weston MD, FACC 04/10/20 1354 1200 1200 Zurdo Weston MD, FAC /EPI
[2020-04-10 16:00] VITALS: BP 143/58
[2020-04-10 20:00] VITALS: BP 127/55
[2020-04-11] VITALS: BP 152/62
[2020-04-11 02:06] LABS: GLYCOHEMOGLOBIN (HGB A1C) 8.6 % (4.8-5.6)
[2020-04-11 08:00] VITALS: BP 117/72
[2020-04-11] MEDS ORDERED: METOPROLOL TART25 MG PO (12:22)
[2020-04-11] MEDS ORDERED: PACERONE 200 M200 M1 PO (12:22)
[2020-04-11] MEDS ORDERED: QUINU5 PD PO (12:22)
[2020-04-11 15:05] VITALS: BP 117/72
== END 2020-04-11 15:20 | disposition home or self-care (01) | DRG 280 ==
LOC: M.ERS 01:00 → M.2W 02:44 → M.TBA-ER 02:44 → M.2W 04:24
PROVIDERS: Emergency Medicine; Internal Medicine; Internal Medicine Cardiovascular Disease; ADMIT Family Medicine; ATTEND Family Medicine
DX: I11.0 Hypertensive heart disease with heart failure (principal); I50.31 Acute diastolic (congestive) heart failure; I21.A1 Myocardial infarction type 2; J96.01 Acute respiratory failure with hypoxia; I48.20 Chronic atrial fibrillation, unspecified; D68.59 Other primary thrombophilia; N17.9 Acute kidney failure, unspecified; E78.5 Hyperlipidemia, unspecified; J44.9 Chronic obstructive pulmonary disease, unspecified; E11.51 Type 2 diabetes mellitus with diabetic peripheral angiopathy without gangrene; F17.210 Nicotine dependence, cigarettes, uncomplicated; I25.10 Atherosclerotic heart disease of native coronary artery without angina pectoris; Z20.822 Contact with and (suspected) exposure to COVID-19; Z96.1 Presence of intraocular lens; I25.2 Old myocardial infarction; Z98.42 Cataract extraction status, left eye; Z98.41 Cataract extraction status, right eye; Z79.84 Long term (current) use of oral hypoglycemic drugs; Z79.01 Long term (current) use of anticoagulants; Z79.899 Other long term (current) drug therapy; Z90.710 Acquired absence of both cervix and uterus; Z89.611 Acquired absence of right leg above knee

== ENCOUNTER 2020-05-13 02:30 | Inpatient (IN) | payer OTHER ==
[~2020-05-13] VITALS: Ht 165.1 cm; Wt 73.6 kg
[2020-05-13] VITALS (7 sets, daily range): BP systolic 139–189; BP diastolic 56–78
[~2020-05-13 02:30] MED LIST changes: +METOPROLOL TART25 MG PO; +PACERONE 200 M200 M1 PO; +QUINU5 PD PO
[2020-05-13 03:00] LABS: BE -4.6 mmol/L (-2 to +3); PCO2 36.1 mmHg (35.0-45.0); PO2 61.4 mmHg (75.0-100.0); pH 7.365 (7.340-7.450)
[2020-05-13 03:02] LABS: HEMATOCRIT 34.6 % (37.0-47.0); HEMOGLOBIN 10.9 gm/dL (12.0-15.0); MCH 26.9 pg (26.0-34.0); MCHC 31.6 g/dL (28.0-37.0); MCV 85.1 fL (80.0-100.0); MPV 8.1 fl. (7.2-11.1); NUCLEATED RBCS 0 /100WBC; PLATELET COUNT* 429 thou/uL (150-400); RBC 4.07 mil/uL (4.20-5.00); RDW-CV 16.3 % (10.5-14.5); WBC 12.5 thou/uL (4.0-11.0)
[2020-05-13 03:12] LABS: CALCIUM 8.8 mg/dL (8.5-10.1); CREATININE 1.6 mg/dL (0.6-1.3); POTASSIUM 5.3 mmol/L (3.5-5.1)
[2020-05-13 03:14] LABS: APTT 39.9 Seconds (25.0-31.3); INR 1.4; PROTIME 14.6 Seconds (9.20-11.50)
[2020-05-13 03:23] LABS: ALBUMIN 2.6 g/dL (3.4-5.0); MAGNESIUM 1.9 mg/dL (1.8-2.4); TOTAL BILIRUBIN 0.2 mg/dL (<0.1-1.0); TOTAL PROTEIN 6.5 g/dL (6.4-8.2)
[2020-05-13 04:43] LABS: BE -3.7 mmol/L (-2 to +3); PCO2 38.1 mmHg (35.0-45.0); pH 7.365 (7.340-7.450)
[2020-05-13 06:09] LABS: ABSOLUTE LYMPHOCYTES 0.8 thou/uL (0.8-5.3); ABSOLUTE MONOCYTES 0.6 thou/uL (0.0-1.2); ABSOLUTE NEUTROPHILS 11.1 thou/uL (1.6-8.1); ANISOCYTOSIS 1+; PLATELET ESTIMATE INCREASED; POIKILOCYTOSIS 1+; TOXIC GRANULATION 1+
[2020-05-14] VITALS (7 sets, daily range): BP systolic 130–169; BP diastolic 46–66
[2020-05-14 09:41] LABS: ALBUMIN 2.1 g/dL (3.4-5.0); CALCIUM 8.3 mg/dL (8.5-10.1); CREATININE 1.6 mg/dL (0.6-1.3); POTASSIUM 5.3 mmol/L (3.5-5.1); TOTAL BILIRUBIN 0.4 mg/dL (<0.1-1.0); TOTAL PROTEIN 5.5 g/dL (6.4-8.2)
[2020-05-15 04:25] VITALS: BP 138/58
[2020-05-15 04:49] LABS: ABSOLUTE EOSINOPHILS 0.3 thou/uL (0.0-0.7); ABSOLUTE LYMPHOCYTES 1.9 thou/uL (0.8-5.3); ABSOLUTE MONOCYTES 0.6 thou/uL (0.0-1.2); ABSOLUTE NEUTROPHILS 3.9 thou/uL (1.6-8.1); BASOPHILS 0.2 %; EOSINOPHILS 4.8 %; HEMATOCRIT 26.4 % (37.0-47.0); LYMPHOCYTES 28.6 %; MCH 27.3 pg (26.0-34.0); MCV 85.2 fL (80.0-100.0); MONOCYTES 8.2 %; MPV 8.5 fl. (7.2-11.1); NUCLEATED RBCS 0 /100WBC; POLYS 58.2 %; RDW-CV 16.6 % (10.5-14.5); WBC 6.7 thou/uL (4.0-11.0)
[2020-05-15 05:15] LABS: CALCIUM 8.4 mg/dL (8.5-10.1); CREATININE 1.8 mg/dL (0.6-1.3); POTASSIUM 4.8 mmol/L (3.5-5.1); TOTAL BILIRUBIN 0.2 mg/dL (<0.1-1.0); TOTAL PROTEIN 5.3 g/dL (6.4-8.2)
[2020-05-15 05:48] LABS: HEMOGLOBIN 8.5 gm/dL (12.0-15.0)
[2020-05-15 05:49] LABS: PLATELET COUNT* 292 thou/uL (150-400)
[2020-05-15 07:50] VITALS: BP 131/46
[2020-05-15 11:23] VITALS: BP 130/42
[2020-05-15 15:55] VITALS: BP 160/61
--- NOTE | 2020-05-15 17:00 | EKG ---
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: [place] : 1950 Requested By: Dea Suero Order Number: [id number] Rosa Isela MD: Yariel Cook Measurements Intervals [place] Rate: 92 P: 42 [place]: 152 QRS: -53 QRSD: 134 T: 13 QT: 413 QTc: 511 Interpretive Statements Sinus rhythm Probable left atrial enlargement RBBB and LAFB Compared to ECG 04/10/2020 12:00:04 Left ventricular hypertrophy no longer present Early repolarization no longer present Electronically Signed On 05-15-2020 16:59:54 PUTTY AND PATCH WORKER by Yariel Cook [email or web address] <ELECTRONICALLY SIGNED> By: Yariel Cook MD, [facility] 05/15/20 1659 0237 0237 Yariel Cook MD, FAC /EPI
[2020-05-15 21:04] VITALS: BP 156/76
[2020-05-16 02:00] VITALS: BP 176/75
[2020-05-16 04:35] LABS: HEMATOCRIT 28.6 % (37.0-47.0); HEMOGLOBIN 9.2 gm/dL (12.0-15.0); MCH 27.1 pg (26.0-34.0); MCHC 32.3 g/dL (28.0-37.0); MPV 8.5 fl. (7.2-11.1); NUCLEATED RBCS 0 /100WBC; PLATELET COUNT* 366 thou/uL (150-400); RDW-CV 16.1 % (10.5-14.5); WBC 5.6 thou/uL (4.0-11.0)
[2020-05-16 04:40] LABS: PREALBUMIN 16.3 mg/dL (18.0-35.7)
[2020-05-16 05:33] VITALS: BP 142/77
[2020-05-16 05:37] LABS: ALBUMIN 2.3 g/dL (3.4-5.0); CALCIUM 8.8 mg/dL (8.5-10.1); CREATININE 1.8 mg/dL (0.6-1.3); POTASSIUM 5.6 mmol/L (3.5-5.1); TOTAL BILIRUBIN 0.2 mg/dL (<0.1-1.0)
[2020-05-16 07:50] LABS: ABSOLUTE LYMPHOCYTES 0.7 thou/uL (0.8-5.3); ABSOLUTE NEUTROPHILS 4.9 thou/uL (1.6-8.1); ANISOCYTOSIS 1+; PLATELET ESTIMATE ADEQUATE; POIKILOCYTOSIS 1+
[2020-05-16 08:00] VITALS: BP 154/77
[2020-05-16] MEDS ORDERED: CEFDINIR300 MG PO (12:04)
[2020-05-16] MEDS ORDERED: GLUCOPHAGE1000 MG PO (12:04)
[2020-05-16] MEDS ORDERED: PREDNISONE 10 M10 MG PO ×2 (12:07→12:17)
[2020-05-16] MEDS ORDERED: PROTONIX40 M2 PO (12:07)
[2020-05-16] MEDS ORDERED: VENTOLIN HFA 1818 GM INH (12:07)
[2020-05-16 12:10] VITALS: BP 152/64
[2020-05-16 12:39] LABS: CALCIUM 9.3 mg/dL (8.5-10.1); CREATININE 1.9 mg/dL (0.6-1.3); POTASSIUM 4.9 mmol/L (3.5-5.1)
[2020-05-16 14:40] VITALS: BP 152/64
== END 2020-05-16 15:05 | disposition home or self-care (01) | DRG 177 ==
LOC: M.ERS 02:30 → M.TBA-ER 04:37 → M.2W 04:37
PROVIDERS: Internal Medicine; Nurse Practitioner Family; Personal Emergency Response Attendant; ADMIT Internal Medicine; ATTEND Internal Medicine
DX: J15.6 Pneumonia due to other Gram-negative bacteria (principal); J96.21 Acute and chronic respiratory failure with hypoxia; I50.41 Acute combined systolic (congestive) and diastolic (congestive) heart failure; J44.1 Chronic obstructive pulmonary disease with (acute) exacerbation; N17.9 Acute kidney failure, unspecified; I13.0 Hypertensive heart and chronic kidney disease with heart failure and stage 1 through stage 4 chronic kidney disease, or unspecified chronic kidney disease; J44.0 Chronic obstructive pulmonary disease with (acute) lower respiratory infection; F17.210 Nicotine dependence, cigarettes, uncomplicated; N18.9 Chronic kidney disease, unspecified; I48.0 Paroxysmal atrial fibrillation; D63.1 Anemia in chronic kidney disease; E11.22 Type 2 diabetes mellitus with diabetic chronic kidney disease; E11.51 Type 2 diabetes mellitus with diabetic peripheral angiopathy without gangrene; I25.10 Atherosclerotic heart disease of native coronary artery without angina pectoris; Z89.611 Acquired absence of right leg above knee; I25.2 Old myocardial infarction; Z98.42 Cataract extraction status, left eye; Z98.41 Cataract extraction status, right eye; Z95.5 Presence of coronary angioplasty implant and graft; Z79.899 Other long term (current) drug therapy; Z20.822 Contact with and (suspected) exposure to COVID-19; Z23 Encounter for immunization